=== PATIENT | female | born 1980 | race Caucasian/White ===

== ENCOUNTER 2016-04-01 11:31 | Emergency (ER) | payer BC ==
[2016-04-01 12:41] VITALS: BP 131/73
--- NOTE | 2016-04-01 12:58 | UC ---
UC General HPI - HPI Summary HPI Summary: sinus pressure and congestion for about 10 days. this all started with uri. she is not improving. she has tried pseudaphed. no fevers. - History of Current Complaint Chief Complaint: UCGeneralIllness Stated Complaint: SINUS COMPLAINT,SORE THROAT Time Seen by Provider: 04/01/16 12:44 Hx Obtained From: Patient Onset/Duration: Gradual Onset, Lasting Weeks Timing: Constant Onset Severity: Moderate Current Severity: Moderate - Allergy/Home Medications Allergies/Adverse Reactions: Allergies Allergy/AdvReac Type Severity Reaction Status Date / Time No Known Allergies Allergy Verified 04/01/16 12:41 Home Medications: Home Medications Ibuprofen TAB* [Advil TAB*] 800 mg PO Q6H PRN 04/01/16 [History Confirmed ] PMH/Surg Hx/FS Hx/Imm Hx Endocrine History Of: Denies: Diabetes, Thyroid Disease, Hyperthyroidism, Hypothyroidism, Dyslipidemia Cardiovascular History Of: Denies: Cardiac Disorders, Hypertension, Pacemaker/ICD, Myocardial Infarction , Congestive Heart Failure, Atrial Fibrillation, Deep Vein Thrombosis, Bleeding Disorders Respiratory History Of: Denies: COPD, Asthma, Bronchitis, Pneumonia, Pulmonary Embolism GI/ History Of: Reports: Kidney Stones - Hx x 5 Denies: Gastroesophageal Reflux, Ulcer, Gastrointestinal Bleed, Gall Bladder Disease, Diverticulitis, Renal Disease, Urosepsis Neurological History Of: Denies: TIA, CVA, Dementia, Seizures, Migraine Psychological History Of: Denies: Anxiety, Depression, Bipolar Disorder, Schizophrenia, Post Traumatic Stress Disorder Cancer History Of: Denies: Lung Cancer, Colorectal Cancer, Breast Cancer, Prostate Cancer, Cervical Cancer Other History Of: Negative For: HIV, Hepatitis B, Hepatitis C, Anticoagulant Therapy - Surgical History Surgical History: Yes Surgery Procedure, Year, and Place: 2004, 2007, 2009 C SECTIONS [place]. 2009 TUBAL LIGATION [place]. 2010 & 2011 L[facility]RIPSY [facility]. 02/2013 D&C [place] - Family History Known Family History: Positive: Diabetes Negative: Cardiac Disease, Hypertension - Social History Alcohol Use: Occasionally Substance Use Type: None Smoking Status (MU): Never Smoked Tobacco Review of Systems Constitutional: Negative All Other Systems Reviewed And Are Negative: Yes Physical Exam Triage Information Reviewed: Yes Appearance: Well-Appearing, No Pain Distress, Well-Nourished, Ill-Appearing Vital Signs: Initial Vital Signs Temp 98.5 F 04/01/16 12:36 Pulse 73 04/01/16 12:36 Resp 16 04/01/16 12:36 BP 131/73 04/01/16 12:36 Pulse Ox 100 04/01/16 12:36 Vital Signs Reviewed: Yes Eyes: Positive: Conjunctiva Clear, Conjunctiva Inflamed ENT Exam: Other - sinus pressure and sinus tenderness. ENT: Positive: Hearing grossly normal, Nasal congestion. Negative: Pharynx normal, Pharyngeal erythema, Nasal drainage, TMs normal, TM bulging, TM dull, TM red, Tonsillar swelling, Tonsillar exudate, Trismus, Muffled/hoarse voice Neck exam: Normal Neck: Positive: Supple, Nontender, No Lymphadenopathy Respiratory Exam: Normal Cardiovascular Exam: Normal Cardiovascular: Positive: RRR. Negative: Tachycardia, Bradycardia Abdominal Exam: Normal Abdomen Description: Positive: Nontender, No Organomegaly Bowel Sounds: Positive: Present Musculoskeletal Exam: Normal Musculoskeletal: Positive: Strength Intact Neurological Exam: Normal Neurological: Positive: Alert, Muscle Tone Normal Psychological Exam: Normal Psychological: Positive: Normal Response To Family Skin Exam: Normal Course/Dx - Course Course Of Treatment: URI with sinus pressure and signs of sinusitis especially as this is 10 days into the symptoms. we discussed netti pots, decongestents and augmentin. - Differential Dx - Multi-Symptom Provider Diagnoses: sinusitis. URI and congestion. Discharge - Discharge Plan Condition: Stable Disposition: HOME Prescriptions: Amoxicillin/Clavulanate TAB* [Augmentin TAB 875*] 875 mg PO BID #20 tab Referrals: Ashwin Quintero MD [Primary Care Provider] - If Needed
== END 2016-04-01 13:10 | disposition home or self-care (01) ==
LOC: UCCORT 11:31
DX: J32.9 Chronic sinusitis, unspecified (principal); J06.9 Acute upper respiratory infection, unspecified
CPT/HCPCS: 99212; G0463

== ENCOUNTER 2016-04-25 19:44 | Emergency (ER) | payer BC ==
[2016-04-25] MEDS ORDERED: Ondansetron INJ* 2 MG/ML VIAL IV ONE (21:30)
[2016-04-25] MEDS ORDERED: NS 0.9% 1000 ML* 2,000 ML IV ONE (21:30)
[2016-04-25 22:26] LABS: Urine Bilirubin Negative (Negative); Urine Glucose Negative (Negative); Urine Nitrite Negative (Negative)
[2016-04-25 22:28] LABS: Hematocrit 39 % (35-47); Hemoglobin 12.9 g/dl (12.0-16.0); Mean Corpuscular HGB Conc 33 g/dl (31-36); Mean Corpuscular Hemoglobin 27 pg (27-31); Mean Corpuscular Volume 81 fL (80-97); Mean Platelet Volume 10 um3 (7.4-10.4); Red Blood Count 4.76 10^6/ul (4.0-5.4); Red Cell Distribution Width 13 % (10.5-15); White Blood Count 12.1 10^3/ul (3.5-10.8)
[2016-04-25 22:39] LABS: ALT 192 U/L (7-52); AST 185 U/L (13-39); Alkaline Phosphatase 63 U/L (34-104); Anion Gap 7 mmol/L (2-11); BUN/Creatinine Ratio 12.5 (8-20); Blood Urea Nitrogen 10 mg/dL (6-24); C Reactive Protein 137.13 mg/L (< 5.00); CO2 Carbon Dioxide 24 mmol/L (22-32); Calcium 9.1 mg/dL (8.6-10.3); Chloride 104 mmol/L (101-111); EGFR African American 104.4 (>60); EGFR Non-African American 81.2 (>60); Globulin 3.1 g/dL (2-4); Glucose 92 mg/dL (70-100); Lipase < 10 U/L (11.0-82.0); Potassium 3.7 mmol/L (3.5-5.0); Sodium 135 mmol/L (133-145); Total Protein 7.1 g/dL (6.4-8.9)
--- NOTE | 2016-04-25 22:39 | RAD ---
INDICATION: Left-sided flank abdominal pain, history of kidney stones. COMPARISON: Comparison is made with a prior KUB series from April 24, 2013. TECHNIQUE: A CT scan of the abdomen and pelvis was performed without intravenous or oral contrast. Contiguous axial sections were obtained from the lung bases through the symphysis pubis. Images were reconstructed in the coronal and sagittal planes. FINDINGS: The lung bases are clear. No pleural effusion is present. The liver is moderately enlarged and decreased in attenuation consistent with fatty infiltration. The spleen is mildly enlarged. No significant focal abnormalities are seen on this noncontrast study. No calcified gallstones are present. The pancreas is within normal limits in size. The adrenal glands and kidneys are normal in size. No renal calculi or hydronephrosis is seen. No ureteral or bladder calculi are seen. The aorta is normal in caliber without significant calcific plaque. No significant enlarged retroperitoneal lymph nodes are seen. The stomach, small and large bowel appear nondistended. The appendix is within normal limits. There is no evidence for diverticulitis or colitis. The uterus is anteverted and mildly enlarged. The ovaries appear slightly high in position. There are bilateral ovarian cysts measuring 3.3 x 3.0 cm in the right ovary and 3.7 x 2.4 cm in the left ovary. No significant focal osseous abnormality is seen. IMPRESSION: 1. NO EVIDENCE FOR RENAL, URETERAL CALCULI OR HYDRONEPHROSIS. 2. HEPATOSPLENOMEGALY AND HEPATIC STEATOSIS. 3. BILATERAL OVARIAN CYSTS.
--- NOTE | 2016-04-25 23:02 | ED ---
Jean Claude Martini Rebecca, scribed for Mariano West MD on 04/25/16 at 2137 . Abdominal Pain/Female - HPI Summary HPI Summary: Pt is a 36 y/o F who presents to ED c/o L flank pain. Pain began suddenly today at 1600 and has been constant since onset. Pain is characterized as sharp, currently ranked 8/10 and discrete to the L flank without radiation. Sx aggravated and alleviated by nothing. Additionally c/o nausea and fever. Fever was 102.1 at its highest, [employer]. Has not taken anything to treat. Pt was evaluated by Dr. Sheldon earlier today where a UA and US were performed, both of which were negative. Pt reports that she was advised to come to ED if her fever elevated beyond [address] to check for a kidney stone. PMHx kidney stones. - History of Current Complaint Chief Complaint: EDFlankPain Stated Complaint: POSSIBLE KIDNEY STONE Time Seen by Provider: 04/25/16 21:34 Hx Obtained From: Patient Hx Last Menstrual Period: 03/13/16 Onset/Duration: Sudden Onset, Lasting Hours - 6 hours, Still Present Timing: Constant Severity Initially: Moderate Severity Currently: Severe Pain Intensity: 8 Pain Scale Used: 0-10 Numeric Location: Flank - Left Radiates: No Character: Sharp Aggravating Factor(s): Nothing Alleviating Factor(s): Nothing Associated Signs and Symptoms: Positive: Fever, Nausea Allergies/Adverse Reactions: Allergies Allergy/AdvReac Type Severity Reaction Status Date / Time No Known Allergies Allergy Verified 04/01/16 12:41 PMH/Surg Hx/FS Hx/Imm Hx Endocrine/Hematology History: Denies: Hx Anticoagulant Therapy, Hx Diabetes, Hx Thyroid Disease Cardiovascular History: Denies: Hx Congestive Heart Failure, Hx Deep Vein Thrombosis, Hx Hypertension , Hx Myocardial Infarction, Hx Pacemaker/ICD Respiratory History: Denies: Hx Asthma, Hx Chronic Obstructive Pulmonary Disease (COPD), Hx Lung Cancer, Hx Pneumonia, Hx Pulmonary Embolism GI History: Denies: Hx Gall Bladder Disease, Hx Gastrointestinal Bleed, Hx Ulcer, Hx Urosepsis History: Reports: Hx Kidney Stones - Hx x 5 Denies: Hx Renal Disease Sensory History: Denies: Hx Hearing Aid Neurological History: Denies: Hx Dementia, Hx Migraine, Hx Seizures, Hx Transient Ischemic Attacks (TIA) Psychiatric History: Denies: Hx Anxiety, Hx Depression, Hx Panic Disorder, Hx Schizophrenia, Hx Bipolar Disorder - Surgical History Surgery Procedure, Year, and Place: 2004, 2007, 2009 C [place]CTIONS [place]. 2009 TUBAL LIGATION [place]. 2010 & 2011 L[facility]OTRIPSY [facility] [place]. 02/2013 [facility] [place] Hx Anesthesia Reactions: No Infectious Disease History: No Infectious Disease History: Denies: Hx Hepatitis, Hx Human Immunodeficiency Virus (HIV), Traveled Outside the [place] in Last 30 Days - Family History Known Family History: Positive: Diabetes Negative: Cardiac Disease, Hypertension - Social History Alcohol Use: Occasionally Substance Use Type: Reports: None Smoking Status (MU): Never Smoked Tobacco Review of Systems Positive: Fever - 102.1 Positive: Abdominal Pain - L flank pain, Nausea All Other Systems Reviewed And Are Negative: Yes Physical Exam Triage Information Reviewed: Yes Vital Signs On Initial Exam: Initial Vitals Temp Pulse Resp BP Pulse Ox 101 F 89 20 151/80 97 04/25/16 19:48 04/25/16 19:48 04/25/16 19:48 04/25/16 19:48 04/25/16 19:48 Vital Signs Reviewed: Yes Appearance: Positive: Pain Distress - mild discomfort, Obese Skin: Positive: Warm Eyes: Positive: GURU ENT: Positive: Hearing grossly normal Neck: Positive: Supple Respiratory/Lung Sounds: Positive: Breath Sounds Present Cardiovascular: Positive: RRR Abdomen Description: Positive: Nontender, Soft. Negative: CVA Tenderness (R), CVA Tenderness (L) Bowel Sounds: Positive: Present Musculoskeletal: Positive: Strength/ROM Intact Neurological: Positive: Alert, Oriented to Person Place, Time, Normal Gait Psychiatric: Positive: Affect/Mood Appropriate Diagnostics - Vital Signs Vital Signs Temp Pulse Resp BP Pulse Ox 04/25/16 21:29 101.1 F 81 20 119/68 100 04/25/16 20:45 100.8 F 88 20 118/76 100 04/25/16 19:48 101 F 89 20 151/80 97 - Laboratory Lab Results: Lab Results 04/25/16 04/25/16 04/25/16 Range/Units 22:02 22:02 22:02 WBC 12.1 H (3.5-10.8) 10^3/ul RBC 4.76 (4.0-5.4) 10^6/ul Hgb 12.9 (12.0-16.0) g/dl Hct 39 (35-47) % MCV 81 (80-97) fL MCH 27 (27-31) pg MCHC 33 (31-36) g/dl RDW 13 (10.5-15) % Plt Count 168 (150-450) 10^3/ul MPV 10 (7.4-10.4) um3 Neut % (Auto) 82.0 (38-83) % Lymph % (Auto) 11.0 L (25-47) % Robeson % (Auto) 4.1 (1-9) % Eos % (Auto) 2.7 (0-6) % Baso % (Auto) 0.2 (0-2) % Absolute Neuts (auto) 9.9 H (1.5-7.7) 10^3/ul Absolute Lymphs (auto) 1.3 (1.0-4.8) 10^3/ul Absolute Monos (auto) 0.5 (0-0.8) 10^3/ul Absolute Eos (auto) 0.3 (0-0.6) 10^3/ul Absolute Basos (auto) 0 (0-0.2) 10^3/ul Absolute Nucleated RBC 0 10^3/ul Nucleated RBC % 0 INR (Anticoag Therapy) 1.10 (0.89-1.11) APTT 27.9 (26.0-36.3) seconds Sodium 135 (133-145) mmol/L Potassium 3.7 (3.5-5.0) mmol/L Chloride 104 (101-111) mmol/L Carbon Dioxide 24 (22-32) mmol/L Anion Gap 7 (2-11) mmol/L BUN 10 (6-24) mg/dL Creatinine 0.80 (0.51-0.95) mg/dL Est GFR ( Amer) 104.4 (>60) Est GFR (Non-Af Amer) 81.2 (>60) BUN/Creatinine Ratio 12.5 (8-20) Glucose 92 (70-100) mg/dL Lactic Acid (0.5-2.0) mmol/L Calcium 9.1 (8.6-10.3) mg/dL Total Bilirubin 1.70 H (0.2-1.0) mg/dL AST 185 H (13-39) U/L ALT 192 H (7-52) U/L Alkaline Phosphatase 63 (34-104) U/L C-Reactive Protein 137.13 H (< 5.00) mg/L Total Protein 7.1 (6.4-8.9) g/dL Albumin 4.0 (3.2-5.2) g/dL Globulin 3.1 (2-4) g/dL Albumin/Globulin Ratio 1.3 (1-3) Lipase < 10 L (11.0-82.0) U/L Beta HCG, Quant < 0.60 mIU/mL Urine Color Urine Appearance Urine pH (5-9) Ur Specific [place] (1.010-1.030) Urine Protein (Negative) Urine Ketones (Negative) Urine Blood (Negative) Urine Nitrate (Negative) Urine Bilirubin (Negative) Urine Urobilinogen (Negative) Ur Leukocyte Esterase (Negative) Urine Glucose (Negative) 04/25/16 04/25/16 Range/Units 22:02 22:02 WBC (3.5-10.8) 10^3/ul RBC (4.0-5.4) 10^6/ul Hgb (12.0-16.0) g/dl Hct (35-47) % MCV (80-97) fL MCH (27-31) pg MCHC (31-36) g/dl RDW (10.5-15) % Plt Count (150-450) 10^3/ul MPV (7.4-10.4) um3 Neut % (Auto) (38-83) % Lymph % (Auto) (25-47) % Robeson % (Auto) (1-9) % Eos % (Auto) (0-6) % Baso % (Auto) (0-2) % Absolute Neuts (auto) (1.5-7.7) 10^3/ul Absolute Lymphs (auto) (1.0-4.8) 10^3/ul Absolute Monos (auto) (0-0.8) 10^3/ul Absolute Eos (auto) (0-0.6) 10^3/ul Absolute Basos (auto) (0-0.2) 10^3/ul Absolute Nucleated RBC 10^3/ul Nucleated RBC % INR (Anticoag Therapy) (0.89-1.11) APTT (26.0-36.3) seconds Sodium (133-145) mmol/L Potassium (3.5-5.0) mmol/L Chloride (101-111) mmol/L Carbon Dioxide (22-32) mmol/L Anion Gap (2-11) mmol/L BUN (6-24) mg/dL Creatinine (0.51-0.95) mg/dL Est GFR ( Amer) (>60) Est GFR (Non-Af Amer) (>60) BUN/Creatinine Ratio (8-20) Glucose (70-100) mg/dL Lactic Acid 0.8 (0.5-2.0) mmol/L Calcium (8.6-10.3) mg/dL Total Bilirubin (0.2-1.0) mg/dL AST (13-39) U/L ALT (7-52) U/L Alkaline Phosphatase (34-104) U/L C-Reactive Protein (< 5.00) mg/L Total Protein (6.4-8.9) g/dL Albumin (3.2-5.2) g/dL Globulin (2-4) g/dL Albumin/Globulin Ratio (1-3) Lipase (11.0-82.0) U/L Beta HCG, Quant mIU/mL Urine Color Yellow Urine Appearance Cloudy Urine pH 8.0 (5-9) Ur Specific [place] 1.018 (1.010-1.030) Urine Protein Negative (Negative) Urine Ketones 1+ H (Negative) Urine Blood Negative (Negative) Urine Nitrate Negative (Negative) Urine Bilirubin Negative (Negative) Urine Urobilinogen Negative (Negative) Ur Leukocyte Esterase Negative (Negative) Urine Glucose Negative (Negative) Result Diagrams: 04/25/16 22:02 04/25/16 22:02 Lab Statement: Any lab studies that have been ordered have been reviewed, and results considered in the medical decision making process. - CT Abd/Pel CT CT Interpretation Completed By: Radiologist - 1. NO EVIDENCE FOR RENAL, URETERAL CALCULI OR HYDRONEPHROSIS. 2. HEPATOSPLENOMEGALY AND HEPATIC STEATOSIS. 3. BILATERAL OVARIAN CYSTS. - Ultrasound No standard instances Ultrasound Interpretation Completed By: Radiologist - US Abd: Enlarged fatty liver. Gallstone without secondary findings for cholecystitis. Re-Evaluation - Re-Evaluation First Eval Change: Improved Abdominal Pain Fem Course/Dx - Course Course Of Treatment: Pt is a 36 y/o F who presents to ED c/o L flank pain, nausea and fever since [address] Abd/Pel reveals bilateral ovarian cysts and no kidney stones. US Abd reveals no acute findings. Pt will be d/c to home with a followup with her PCP. - Diagnoses Provider Diagnoses: Abdominal pain Discharge - Discharge Plan Condition: Stable Disposition: HOME Prescriptions: Ondansetron ODT TAB* [Zofran Odt TAB*] 4 mg PO Q6H #10 tab.odt Patient Education Materials: Abdominal Pain (ED) Referrals: Ashwin Quintero MD [Primary Care Provider] - 3 Days (Follow up with your primary care physician within the next 3 days. ) The documentation as recorded by the Jean Claude rubin Rebecca accurately reflects the service I personally performed and the decisions made by me, Mariano West MD.
[2016-04-26 00:38] VITALS: BP 155/62
--- NOTE | 2016-04-26 07:36 | RAD ---
HISTORY: Elevated LFTs, abdominal pain COMPARISONS: CT dated April 25, 2016 TECHNIQUE: Multiple transverse and longitudinal ultrasound images were obtained of the right upper quadrant of the abdomen using grayscale and color Doppler imaging. FINDINGS: LIVER: The liver is diffusely echogenic and coarse in echotexture, with decreased acoustic transmission. The liver is enlarged measuring 19.9 cm in long axis.. There is normal hepatopedal flow of the portal vein on Doppler imaging. BILIARY TREE: There is no intrahepatic or extrahepatic biliary dilatation. The common duct measures 0.4 cm. GALLBLADDER: The gallbladder is distended. There is an echogenic shadowing focus consistent with a gallstone. There is no gallbladder wall thickening, pericholecystic fluid, or sonographic Guajardo sign. PANCREAS: The head of the pancreas is unremarkable. The tail of the pancreas is not well visualized secondary to overlying bowel gas. RIGHT KIDNEY: The right kidney is normal in shape, size, contour, and echogenicity. There is no hydronephrosis or nephrolithiasis. The right kidney measures 13.3 x 5.1 x 6.1 cm. AORTA AND IVC: The aorta and IVC are unremarkable. FLUID: There are no pleural effusions. There is no free fluid within the hepatorenal recess. OTHER FINDINGS: None. IMPRESSION: 1. HEPATOMEGALY WITH FATTY INFILTRATION OF THE LIVER. 2. CHOLELITHIASIS WITHOUT SONOGRAPHIC FEATURES OF ACUTE CHOLECYSTITIS.
== END 2016-04-26 00:40 | disposition home or self-care (01) ==
LOC: ED 19:44
DX: R10.84 Generalized abdominal pain (principal); R11.2 Nausea with vomiting, unspecified; R50.9 Fever, unspecified
CPT/HCPCS: 36415; 74176; 76705; 80053; 81003; 83605; 83690; 84702; 85025; 85610; 85730; 86140; 87040; 96374; 99283; J2405

== ENCOUNTER 2016-10-23 15:42 | Emergency (ER) | payer BC ==
[2016-10-23 16:49] VITALS: BP 135/72
--- NOTE | 2016-10-23 17:20 | UC ---
Ear Complaint HPI - HPI Summary HPI Summary: Pt presents with c/o bilateral ear pain and discomfort X 3-4 days. pt pt reports that her "ears feel full, itchy, and ache". She recently traveled to beach vacation and was swimming on a daily basis. Pt has history of seasonal allergies and stgaed she has had some nasal congestion and "sinus fullness" X 4- 5 days. - History of Current Complaint Chief Complaint: UCEar Stated Complaint: EAR ACHE Time Seen by Provider: 10/23/16 17:13 Hx Obtained From: Patient Hx Last Menstrual Period: 09/20/16 - has PCOS ?: No Onset/Duration: Gradual Onset, Lasting Days, Still Present, Worse Since - moderate Severity Initially: Mild Severity Currently: Mild Associated Signs/Symptoms: Positive: Hearing Loss Related History: Seasonal Allergies - Allergies/Home Medications Allergies/Adverse Reactions: Allergies Allergy/AdvReac Type Severity Reaction Status Date / Time No Known Allergies Allergy Verified 10/23/16 16:41 PMH/Surg Hx/FS Hx/Imm Hx Previously Healthy: Yes Other History Of: Negative For: HIV, Hepatitis B, Hepatitis C, Anticoagulant Therapy - Surgical History Surgical History: Yes Surgery Procedure, Year, and Place: 2004, 2007, 2009 C SECTIONS [place]. 2009 TUBAL LIGATION [place]. 2010 & 2011 L[facility]RIPSY [facility] [place]. 02/2013 [facility]C [place] - Family History Known Family History: Positive: Diabetes Negative: Cardiac Disease, Hypertension - Social History Occupation: Employed Full-time Lives: With Family Alcohol Use: Occasionally Substance Use Type: None Smoking Status (MU): Never Smoked Tobacco Have You Smoked in the Last Year: No Review of Systems Constitutional: Negative Skin: Negative Eyes: Negative ENT: Ear Ache - bilateral, Sinus Congestion, Other - nasal congestion Respiratory: Negative Cardiovascular: Negative Gastrointestinal: Negative Genitourinary: Negative Motor: Negative Neurovascular: Negative Musculoskeletal: Negative Neurological: Negative Psychological: Negative All Other Systems Reviewed And Are Negative: Yes Physical Exam Triage Information Reviewed: Yes Appearance: Well-Appearing Vital Signs: Initial Vital Signs Temp 99.2 F 10/23/16 16:42 Pulse 81 10/23/16 16:42 Resp 16 10/23/16 16:42 BP 135/72 10/23/16 16:42 Pulse Ox 97 10/23/16 16:42 Vital Signs Reviewed: Yes Eye Exam: Normal ENT Exam: Other ENT: Positive: Nasal congestion, TMs normal, Other: - right ear canal small amount cerumen, Dental Exam: Normal Neck exam: Normal Respiratory Exam: Normal Cardiovascular Exam: Normal Musculoskeletal Exam: Normal Neurological Exam: Normal Psychological Exam: Normal Skin Exam: Normal Ear Complaint Course/Dx - Differential Dx/Diagnosis Differential Diagnosis/HQI/PQRI: URI Provider Diagnoses: ear ache. serous otitis media Discharge - Discharge Plan Condition: Stable Disposition: HOME Prescriptions: Tobramycin/Dexameth OPTH.SUSP* [Tobradex 0.3-0.1%*] 2 drop BOTH EARS Q8H #1 btl Patient Education Materials: Earache (ED) Referrals: Ashwin Quintero MD [Primary Care Provider] - If Needed Additional Instructions: It is recommend that you continue taking and over the counter antihistamine and decongestant. If your symptoms worsen please return to clinic or follow up with your PCP.
== END 2016-10-23 17:30 | disposition home or self-care (01) ==
LOC: UCCORT 15:42
DX: H65.93 Unspecified nonsuppurative otitis media, bilateral (principal); H92.03 Otalgia, bilateral; H61.21 Impacted cerumen, right ear
CPT/HCPCS: 99212; G0463

== ENCOUNTER 2017-05-20 07:01 | Emergency (ER) | payer BC ==
--- NOTE | 2017-05-20 07:16 | UC ---
Complaint Female HPI - HPI Summary HPI Summary: 37 yo female c/o frequ / urg / dysuria prog worse x 4 days. Thinks started with vag yeast infection, was taking cephalexin d/t post surg wound, completed on . + whte vag discharge. + mild mid low back pain. No f /c. No rash. No GI upset. No c/o sob / cp. - History Of Current Complaint Stated Complaint: URINARY Time Seen by Provider: 05/20/17 07:08 Hx Obtained From: Patient Hx Last Menstrual Period: 09/20/16 - has PCOS - Allergies/Home Medications Allergies/Adverse Reactions: Allergies Allergy/AdvReac Type Severity Reaction Status Date / Time No Known Allergies Allergy Verified 05/20/17 07:24 Home Medications: Home Medications Cephalexin CAP* [Keflex CAP*] 500 mg PO QID 05/20/17 [History Confirmed 05/20/17 ] Miconazole TOPICAL CREAM 2%* [Monistat 2%*] 1 applic TOPICAL DAILY 05/20/17 [ History Confirmed 05/20/17] PMH/Surg Hx/FS Hx/Imm Hx Previously Healthy: Yes - recent GBS Other History Of: Negative For: HIV, Hepatitis B, Hepatitis C, Anticoagulant Therapy - Surgical History Surgical History: Yes Surgery Procedure, Year, and Place: 2004, 2007, 2009 [place]. 2009 [place]. 2010 & 2011 [place] [facility] [place] [facility] [place] 02/2013 [place] - Family History Known Family History: Positive: Diabetes Negative: Cardiac Disease, Hypertension - Social History Alcohol Use: Occasionally Substance Use Type: None Smoking Status (MU): Never Smoked Tobacco Have You Smoked in the Last Year: No Review of Systems Constitutional: Negative Skin: Negative Eyes: Negative ENT: Negative Respiratory: Negative Cardiovascular: Negative Gastrointestinal: Negative - recent gbs surg Genitourinary: Dysuria, Frequency, Urgency Motor: Negative Neurovascular: Negative Musculoskeletal: Negative Neurological: Negative Psychological: Negative Is Patient Immunocompromised?: No All Other Systems Reviewed And Are Negative: Yes Physical Exam Triage Information Reviewed: Yes Appearance: Well-Appearing, Well-Nourished Vital Signs Reviewed: Yes Eye Exam: Normal ENT Exam: Normal Neck exam: Normal Respiratory Exam: Normal Respiratory: Positive: Chest non-tender, Lungs clear, Normal breath sounds, No respiratory distress Cardiovascular Exam: Normal Cardiovascular: Positive: RRR, No Murmur Abdominal Exam: Normal Abdomen Description: Positive: Nontender Musculoskeletal Exam: Normal Neurological Exam: Normal Psychological Exam: Normal Skin Exam: Normal Complaint Female Dx - Course Course Of Treatment: Declined pelvic exam. Reviewed coa / tx plan. Questions as posed answered to the best of my ability. F/U pcp encouraged - Differential Dx/Diagnosis Provider Diagnoses: UTI. yeast vaginitis (by clinical descp, declined exam) Discharge - Discharge Plan Condition: Stable Disposition: HOME Prescriptions: Fluconazole [Diflucan 150 MG (NF)] 150 mg PO DAILY #2 tab Sulfamethox/Trimethoprim DS* [Bactrim DS 800/160 TAB*] 1 tab PO BID #14 tab Patient Education Materials: Urinary Tract Infection in Women (DC), Yeast Infection (ED), Hematuria (ED) Referrals: Ashwin Quintero MD [Primary Care Provider] - Additional Instructions: Follow up with your primary care physician after antibiotics complete, to ensure blood in urine is clear. Seek medical attention for worse or new problems in the meantime.
[2017-05-20 07:24] VITALS: BP 144/65
== END 2017-05-20 07:50 | disposition home or self-care (01) ==
LOC: UCCORT 07:01
DX: N39.0 Urinary tract infection, site not specified (principal); B37.3 Candidiasis of vulva and vagina; B95.2 Enterococcus as the cause of diseases classified elsewhere
CPT/HCPCS: 81003; 87077; 87086; 87186; 99212; G0463

== ENCOUNTER 2017-06-16 15:06 | Emergency (ER) | payer BC ==
[2017-06-16 15:55] VITALS: BP 142/79
--- NOTE | 2017-06-16 16:19 | UC ---
Throat Pain/Nasal [place] HPI - HPI Summary HPI Summary: 37 yo female with sore throat and facial pressure x 4-5 days no f/c low energy - History of Current Complaint Chief Complaint: UCGeneralIllness Stated Complaint: SORE THROAT Time Seen by Provider: 06/16/17 16:04 Hx Obtained From: Patient Hx Last Menstrual Period: 06/09/17 Onset/Duration: Gradual Onset, Lasting Days Severity: Moderate Pain Intensity: 6 Pain Scale Used: 0-10 Numeric Cough: None Associated Signs & Symptoms: Positive: Sinus Discomfort - Epiglottits Risk Factors Epiglottis Risk Factors: Negative - Allergies/Home Medications Allergies/Adverse Reactions: Allergies Allergy/AdvReac Type Severity Reaction Status Date / Time amoxicillin [From Augmentin] AdvReac yeast Verified 06/16/17 15:55 infection clavulanic acid AdvReac yeast Verified 06/16/17 15:55 [From Augmentin] infection sulfamethoxazole AdvReac GI cramps Verified 06/16/17 15:55 [From Bactrim] trimethoprim [From Bactrim] AdvReac GI cramps Verified 06/16/17 15:55 PMH/Surg Hx/FS Hx/Imm Hx Previously Healthy: Yes Other History Of: Negative For: HIV, Hepatitis B, Hepatitis C, Anticoagulant Therapy - Surgical History Surgical History: Yes Surgery Procedure, Year, and Place: 2004, 2007, 2009 C [place]CTIONS [place]. 2009 TUBAL LIGATION [place]. 2010 & 2011 L[place] [facility] [place] 02/2013 [facility] [place]. gallbladder 03/28/17 - Family History Known Family History: Positive: Diabetes Negative: Cardiac Disease, Hypertension - Social History Alcohol Use: Occasionally Substance Use Type: None Smoking Status (MU): Never Smoked Tobacco Have You Smoked in the Last Year: No Review of Systems Constitutional: Fatigue Skin: Negative Eyes: Negative ENT: Sore Throat, Nasal Discharge, Sinus Congestion Respiratory: Negative Cardiovascular: Negative Gastrointestinal: Negative Genitourinary: Negative Motor: Negative Neurovascular: Negative Musculoskeletal: Negative Neurological: Negative Psychological: Negative Is Patient Immunocompromised?: No All Other Systems Reviewed And Are Negative: Yes Physical Exam Triage Information Reviewed: Yes Appearance: Well-Appearing, No Pain Distress, Well-Nourished Vital Signs: Initial Vital Signs Temp 98.7 F 06/16/17 15:48 Pulse 75 06/16/17 15:48 Resp 18 06/16/17 15:48 BP 142/79 06/16/17 15:48 Pulse Ox 100 06/16/17 15:48 Vital Signs Reviewed: Yes Eyes: Positive: Conjunctiva Clear ENT: Positive: Pharyngeal erythema, Uvula midline. Negative: Nasal congestion, Nasal drainage, TM red, Tonsillar swelling, Tonsillar exudate, Trismus Neck: Positive: Supple, Nontender, No Lymphadenopathy Respiratory: Positive: Lungs clear, Normal breath sounds, No respiratory distress, No accessory muscle use Cardiovascular: Positive: RRR, No Murmur Musculoskeletal: Positive: ROM Intact, No Edema Neurological: Positive: Alert Psychological Exam: Normal Skin Exam: Normal Diagnostics - Laboratory Diagnostic Studies Completed/Ordered: strep (-) Throat Pain/Nasal Course/Dx - Differential Dx/Diagnosis Provider Diagnoses: acute sinusitis Discharge - Sign-Out/Discharge Documenting (check all that apply): Discharge - Discharge Plan Condition: Stable Disposition: HOME Prescriptions: Azithromycin TAB* [Zithromax TAB*] 250 mg PO DAILY #6 tab Fluconazole 150 MG (NF) [Diflucan 150 mg (NF)] 150 mg PO ONCE #1 tab Patient Education Materials: Sinusitis (ED) Referrals: No Primary Care Phys,NOPCP [Primary Care Provider] - Additional Instructions: strep test (-) saline nasal spray twice daily - Billing Disposition and Condition Condition: STABLE Disposition: HOME
== END 2017-06-16 16:25 | disposition home or self-care (01) ==
LOC: UCCORT 15:06
DX: J01.90 Acute sinusitis, unspecified (principal); Z88.1 Allergy status to other antibiotic agents; Z88.0 Allergy status to penicillin; Z88.8 Allergy status to other drugs, medicaments and biological substances
CPT/HCPCS: 87651; 99212; G0463

== ENCOUNTER 2017-10-02 21:28 | Emergency (ER) | payer BC ==
[2017-10-02 21:47] VITALS: BP 129/71
[2017-10-02] MEDS ORDERED: Clarithromycin TAB* 500 MG PO ONE (21:55)
--- NOTE | 2017-10-02 21:59 | ED ---
Throat Pain/Nasal Congestion - HPI Summary HPI Summary: 37 yr old female with the complaint of bilateral ear pain, right greater then left, and sinus pressure post nasal drip and sore throat on the right side. No fever, chills. No SOB. No coughing. She has a history of sinusitis. No other complaints. pain is moderate. - History of Current Complaint Chief Complaint: UCEar Time Seen by Provider: 10/02/17 21:35 - Allergies/Home Medications Allergies/Adverse Reactions: Allergies Allergy/AdvReac Type Severity Reaction Status Date / Time amoxicillin [From Augmentin] AdvReac yeast Verified 10/02/17 21:48 infection clavulanic acid AdvReac yeast Verified 10/02/17 21:48 [From Augmentin] infection sulfamethoxazole AdvReac GI cramps Verified 10/02/17 21:48 [From Bactrim] trimethoprim [From Bactrim] AdvReac GI cramps Verified 10/02/17 21:48 Home Medications: Home Medications Ibuprofen TAB* [Motrin TAB* 800 MG] 800 mg PO ONCE 10/02/17 [History Confirmed 10/02/17] PMH/Surg Hx/FS Hx/Imm Hx Endocrine/Hematology History: Denies: Hx Anticoagulant Therapy, Hx Diabetes, Hx Thyroid Disease Cardiovascular History: Denies: Hx Congestive Heart Failure, Hx Deep Vein Thrombosis, Hx Hypertension , Hx Myocardial Infarction, Hx Pacemaker/ICD Respiratory History: Denies: Hx Asthma, Hx Chronic Obstructive Pulmonary Disease (COPD), Hx Lung Cancer, Hx Pneumonia, Hx Pulmonary Embolism GI History: Denies: Hx Gall Bladder Disease, Hx Gastrointestinal Bleed, Hx Ulcer, Hx Urosepsis History: Reports: Hx Kidney Stones - Hx x 5 Denies: Hx Renal Disease Sensory History: Denies: Hx Hearing Aid Neurological History: Denies: Hx Dementia, Hx Migraine, Hx Seizures, Hx Transient Ischemic Attacks (TIA) Psychiatric History: Denies: Hx Anxiety, Hx Depression, Hx Panic Disorder, Hx Schizophrenia, Hx Bipolar Disorder - Surgical History Surgery Procedure, Year, and Place: 2004, 2007, 2009 [facility] [place] [place]. 2009 [place]AL L[place]ATION [place]. 2010 & 2011 LITHOTRIPSY [facility]. 02/2013 [facility] [place]. gallbladder 03/28/17 Hx Anesthesia Reactions: No Infectious Disease History: No Infectious Disease History: Denies: Hx Hepatitis, Hx Human Immunodeficiency Virus (HIV), Traveled Outside the [place] in Last 30 Days - Family History Known Family History: Positive: Diabetes Negative: Cardiac Disease, Hypertension - Social History Occupation: Employed Full-time Alcohol Use: Occasionally Substance Use Type: Reports: None Smoking Status (MU): Never Smoked Tobacco Have You Smoked in the Last Year: No Review of Systems Constitutional: Negative Positive: Ear Ache, Nasal Discharge All Other Systems Reviewed And Are Negative: Yes Physical Exam Triage Information Reviewed: Yes Vital Signs On Initial Exam: Initial Vitals Temp Pulse Resp BP Pulse Ox 98.3 F 77 17 129/71 99 10/02/17 21:42 10/02/17 21:42 10/02/17 21:42 10/02/17 21:42 10/02/17 21:42 Vital Signs Reviewed: Yes Appearance: Positive: Well-Appearing, No Pain Distress Skin: Positive: Warm, Skin Color Reflects Adequate Perfusion Head/Face: Positive: Normal Head/Face Inspection Eyes: Positive: EOMI ENT: Positive: Nasal congestion, TM red - left, right with effusion. Neck: Positive: Nontender Respiratory/Lung Sounds: Positive: Clear to Auscultation, Breath Sounds Present Cardiovascular: Positive: RRR. Negative: Murmur Abdomen Description: Positive: Nontender Musculoskeletal: Positive: Strength/ROM Intact Neurological: Positive: Sensory/Motor Intact, Alert, Oriented to Person Place, Time, CN Intact II-III, Normal Gait Psychiatric: Positive: Normal - Marva Coma Scale Best Eye Response: 4 - Spontaneous Best Motor Response: 6 - Obeys Commands Best Verbal Response: 5 - Oriented Coma Scale Total: 15 Diagnostics - Vital Signs Vital Signs Temp Pulse Resp BP Pulse Ox 10/02/17 21:42 98.3 F 77 17 129/71 99 - Laboratory Lab Statement: Any lab studies that have been ordered have been reviewed, and results considered in the medical decision making process. EENT Course/Dx - Course Course Of Treatment: 37 yr old with sinusitis, and OM. Rx Biaxin. - Diagnoses Provider Diagnoses: Otitis media, Sinusitis Discharge - Sign-Out/Discharge Documenting (check all that apply): Discharge/Admit/Transfer - Discharge Plan Condition: Good Disposition: HOME Prescriptions: Clarithromycin TAB* [Biaxin 500 MG TAB*] 500 mg PO BID #20 tab Patient Education Materials: Sinusitis (ED), Ear Infection (ED) Referrals: [facility] [place] PHYSICIAN REFERRAL [Outside] No Primary Care Phys,NOPCP [Primary Care Provider] - - Billing Disposition and Condition Condition: GOOD Disposition: Home
== END 2017-10-02 22:06 | disposition home or self-care (01) ==
LOC: UCCORT 21:28
DX: H66.93 Otitis media, unspecified, bilateral (principal); J32.9 Chronic sinusitis, unspecified; Z88.0 Allergy status to penicillin; Z88.2 Allergy status to sulfonamides
CPT/HCPCS: 99212; A9270-GY; G0463

== ENCOUNTER 2018-01-07 16:40 | Emergency (ER) | payer BC ==
[2018-01-07] MEDS ORDERED: Azithromycin TAB* 250 MG PO ONE (17:56)
[2018-01-07] MEDS ORDERED: Albuterol HFA INHALER* 8 gm MDI INH ONE (17:56)
[2018-01-07] MEDS ORDERED: Benzonatate CAP* 100 MG PO ONE (17:57)
[2018-01-07 18:00] VITALS: BP 138/71
--- NOTE | 2018-01-07 18:01 | UC ---
Respiratory Complaint HPI - HPI Summary HPI Summary: 7 days of nasal and throat sx now has bronchial symptoms with cough burning and green sputum---feels fatigued and SOB - History of Current Complaint Chief Complaint: UCRespiratory Stated Complaint: COUGH Time Seen by Provider: 01/07/18 17:43 Hx Obtained From: Patient Hx Last Menstrual Period: "maybe dec 14-"; irregular menses ?: No Onset/Duration: Gradual Onset, Lasting Days - 7, Still Present, Worse Since - past 3 days Timing: Constant Severity Initially: Mild Severity Currently: Moderate Pain Intensity: 5 Pain Scale Used: 0-10 Numeric Character: Cough: Productive Aggravating Factors: Deep Breaths, Recumbent Position Alleviating Factors: Other - sudafed with Robitussin is providing some relief-- Associated Signs And Symptoms: Positive: Dyspnea, Chills, Pleuritic Chest Pain - Allergies/Home Medications Allergies/Adverse Reactions: Allergies Allergy/AdvReac Type Severity Reaction Status Date / Time amoxicillin [From Augmentin] AdvReac yeast Verified 01/07/18 17:55 infection clavulanic acid AdvReac yeast Verified 01/07/18 17:55 [From Augmentin] infection sulfamethoxazole AdvReac GI cramps Verified 01/07/18 17:55 [From Bactrim] trimethoprim [From Bactrim] AdvReac GI cramps Verified 01/07/18 17:55 PMH/Surg Hx/FS Hx/Imm Hx Previously Healthy: Yes Other History Of: Negative For: HIV, Hepatitis B, Hepatitis C, Anticoagulant Therapy - Surgical History Surgical History: Yes Surgery Procedure, Year, and Place: 2004, 2007, 2009 [place]. 2009 [place]AL L[place]. 2010 & 2011 LITH[facility]RIPSY [facility] [place]. 02/2013 [facility] [place]. gallbladder 03/28/17 - Family History Known Family History: Positive: Diabetes Negative: Cardiac Disease, Hypertension - Social History Occupation: Employed Full-time - teacher Lives: With Family Alcohol Use: None Substance Use Type: None Smoking Status (MU): Never Smoked Tobacco Have You Smoked in the Last Year: No Review of Systems Constitutional: Chills, Fatigue Skin: Negative Eyes: Negative ENT: Sore Throat, Nasal Discharge Respiratory: Shortness Of Breath, Cough Cardiovascular: Negative Gastrointestinal: Negative Genitourinary: Negative Motor: Negative Neurovascular: Negative Musculoskeletal: Negative Neurological: Negative Psychological: Negative Is Patient Immunocompromised?: No All Other Systems Reviewed And Are Negative: Yes Physical Exam Triage Information Reviewed: Yes Appearance: Well-Appearing, No Pain Distress, Well-Nourished Vital Signs: Initial Vital Signs Temp 98 F 01/07/18 17:55 Pulse 79 01/07/18 17:55 Resp 18 01/07/18 17:55 BP 138/71 01/07/18 17:55 Pulse Ox 99 01/07/18 17:55 Vital Signs Reviewed: Yes Eye Exam: Normal Eyes: Positive: Conjunctiva Clear ENT Exam: Normal ENT: Positive: Normal ENT inspection, Hearing grossly normal, Pharynx normal, TMs normal, Uvula midline. Negative: Nasal congestion, Tonsillar swelling, Tonsillar exudate, Trismus, Muffled voice, Hoarse voice, Dental tenderness, Sinus tenderness Dental Exam: Normal Neck exam: Normal Neck: Positive: Supple, Nontender, No Lymphadenopathy Respiratory Exam: Normal Respiratory: Positive: Chest non-tender, Lungs clear, Normal breath sounds, No respiratory distress, No accessory muscle use Cardiovascular Exam: Normal Cardiovascular: Positive: RRR, No Murmur, Pulses Normal, Brisk Capillary Refill Musculoskeletal Exam: Normal Musculoskeletal: Positive: Strength Intact, ROM Intact, No Edema Neurological Exam: Normal Neurological: Positive: Alert, Muscle Tone Normal Psychological Exam: Normal Skin Exam: Normal UC Diagnostic Evaluation - Laboratory O2 Sat by Pulse Oximetry: 99 Respiratory Course/Dx - Course Course Of Treatment: zithromax, tessalon and albuterol, increase fluids and follow with pcp prn - Differential Dx/Diagnosis Provider Diagnoses: acute bronchitis Discharge - Sign-Out/Discharge Documenting (check all that apply): Patient Departure All imaging exams completed and their final reports reviewed: No Studies - Discharge Plan Condition: Stable Disposition: HOME Prescriptions: Azithromycin TAB* [Zithromax TAB (Z-ELEANOR) 250 mg #6 tabs] 250 mg PO DAILY #4 tab Benzonatate CAP* [Tessalon 100 MG CAP*] 100 - 200 mg PO TID PRN #30 cap PRN Reason: cough Patient Education Materials: How to Use a Metered-Dose Inhaler (ED), Acute Bronchitis (ED) Referrals: KENAN Mcguire [Medical Doctor] - If Needed - Billing Disposition and Condition Condition: STABLE Disposition: Home
== END 2018-01-07 18:11 | disposition home or self-care (01) ==
LOC: UCCORT 16:40
DX: J20.9 Acute bronchitis, unspecified (principal); Z88.0 Allergy status to penicillin; Z88.8 Allergy status to other drugs, medicaments and biological substances; Z88.1 Allergy status to other antibiotic agents
CPT/HCPCS: 99213; A9270-GY; G0463

== ENCOUNTER 2018-01-10 11:03 | Emergency (ER) | payer BC ==
[2018-01-10 12:41] VITALS: BP 144/98
--- NOTE | 2018-01-10 12:56 | UC ---
Respiratory Complaint HPI - HPI Summary HPI Summary: Pt presents for evaluation of her cough.Pt was treated here 3 days ago - dx with bronchitis. Pt stareted on z pack and MDI - no spacer. Pt states feels congested and heavy in her chest. states feels like can't get "Stuff up" occasional wheeze. mild sinus congestion. No PND. No fever, chills, rash. no VELASCO , vision changes. pt without a h/o asthma. Pt has had bronchitis. Pt's dayghter with asthma. 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 Pt's medications reviewed this visit - History of Current Complaint Chief Complaint: UCRespiratory Stated Complaint: UPPER RESPIRATORY RECHECK Time Seen by Provider: 01/10/18 12:49 Hx Obtained From: Patient, Family/Training Lead, Medical Records Hx Last Menstrual Period: 12/12/17 Pain Intensity: 0 - Allergies/Home Medications Allergies/Adverse Reactions: Allergies Allergy/AdvReac Type Severity Reaction Status Date / Time amoxicillin [From Augmentin] AdvReac yeast Verified 01/10/18 12:41 infection clavulanic acid AdvReac yeast Verified 01/10/18 12:41 [From Augmentin] infection sulfamethoxazole AdvReac GI cramps Verified 01/10/18 12:41 [From Bactrim] trimethoprim [From Bactrim] AdvReac GI cramps Verified 01/10/18 12:41 Home Medications: Home Medications Albuterol HFA INHALER* [Ventolin HFA Inhaler*] 1 - 2 puff INH Q4H PRN 01/10/18 [ History Confirmed 01/10/18] PMH/Surg Hx/FS Hx/Imm Hx Previously Healthy: Yes Other History Of: Negative For: HIV, Hepatitis B, Hepatitis C, Anticoagulant Therapy - Surgical History Surgical History: Yes Surgery Procedure, Year, and Place: 2004, 2007, 2009 [place] [place]. 2009 [place]AL L[place]ATION [place]. 2010 & 2011 L[facility]OTRIPSY [facility] [place]. 02/2013 [facility] [place]. gallbladder 03/28/17 - Family History Known Family History: Positive: Diabetes Negative: Cardiac Disease, Hypertension - Social History Occupation: Employed Full-time Lives: With Family Alcohol Use: None Substance Use Type: None Smoking Status (MU): Never Smoked Tobacco Have You Smoked in the Last Year: No Review of Systems Constitutional: Fatigue ENT: Sinus Congestion Respiratory: Cough All Other Systems Reviewed And Are Negative: Yes Physical Exam - Summary Physical Exam Summary: Vital Signs Reviewed: Yes A+Ox3, coarse cough, congested Eyes: Conjunctiva Clear, GURU. EOM intact and full ENT: Hearing grossly normal TM x 2 clear, turbinates inflammed, + PND + PND, mmoist, uvula midline, no exudate, no erythema Neck: Positive: Supple Respiratory: Positive: No respiratory distress, No accessory muscle use scattered wheeze, no rhonchi + coarse cough speaking full easy sentences. Cardiovascular: RRR nl s1, s2 no m/r CBT <2 sec abd soft + BS nt/nd no guarding, no distension Musculoskeletal Exam: NORTH x 4 without difficulty Strength Intact, ROM Intact Neurological: Positive: Alert, + sensation throughout Psychological: Positive: Normal Response To Family Skin: Positive: no rash, no ecchymosis Triage Information Reviewed: Yes Vital Signs: Initial Vital Signs Temp 97.9 F 01/10/18 12:32 Pulse 80 01/10/18 12:32 Resp 20 01/10/18 12:32 BP 144/98 01/10/18 12:32 Pulse Ox 100 01/10/18 12:32 UC Diagnostic Evaluation - Laboratory O2 Sat by Pulse Oximetry: 100 - Radiology Radiology Interpretation Completed By: Radiologist - Patient Name: THEA GÓMEZ Medical Record#: [id number] Re-Evaluation - Re-Evaluation First Eval Change: Improved - Pt reports feeling markedly improved - chest congestion "better' no heaviness wheezing resolved, cough improved continue z pack spacer pt has nebulizer machine - will give tubing and albuterol pred secretion precaution Respiratory Course/Dx - Course Course Of Treatment: Pt presents reporting ongoing congestion, cough, chest fullness and congestion x 1 week. Pt using MDI and abx with little improvement. On exam, pt with coarse cough and wheeze. Will give duoneb, cxr and reassess - Differential Dx/Diagnosis Provider Diagnoses: acute bronchitis Discharge - Sign-Out/Discharge Documenting (check all that apply): Patient Departure All imaging exams completed and their final reports reviewed: Yes - Discharge Plan Condition: Stable Disposition: HOME Prescriptions: Albuterol 2.5MG/3ML (0.083%)* [Ventolin 2.5 MG/3 ML NEB.CHRIS*] 2.5 mg INH Q4H PRN #30 [email or web address] PRN Reason: wheeze Fluconazole [Diflucan 150 MG (NF)] 150 mg PO ONCE PRN #1 tab PRN Reason: vaginal yeast infection predniSONE [Deltasone 20 MG TAB] 40 mg PO DAILY #10 tab Patient Education Materials: Acute Bronchitis (ED) Forms: *Work Release Referrals: [facility] [place] [facility]IAN REFERRAL [Outside] No Primary Care Phys,NOPCP [Primary Care Provider] - Additional Instructions: - Take antibiotics exactly as prescribed until gone - Take prednisone once daily x 5 days -Use your albuterol puffer with a spacer OR nebulizer - 2 puffs ever 4 hours for the next 2 days - then as needed -Stay well hydrated - avoid excess caffeine and all alcohol - eat regular, healthy meals - Okay to take over the counter cough and decongestant medications - You have been given a prescription for medication to treat a yeast infection if you develop from the antibiotics - These infections are spread by oral secretions. Do not share eating or drinking utensils. Frequent hand washing is important. Clean items that may get your secretions on them such as cell phones, ipads, computer mouse, television remotes. Once you have been on antbiotics for 2 days, change your pillowcase and your toothbrush -Contact your doctor to arrange a follow-up appointment this week. Call your doctor, return here or go to the emergency department with any questions or concerns - Billing Disposition and Condition Condition: STABLE Disposition: Home
[2018-01-10] MEDS ORDERED: Albuterol/Ipratropium NEB.SOL* Albuterol 2.5 MG/Ipratropium 0.5 MG 3 ML INH ONE (13:06)
--- NOTE | 2018-01-10 13:21 | RAD ---
INDICATION: Productive cough and wheeze. COMPARISON: Comparison is made with a prior study from January 23, 2010. TECHNIQUE: Dual-energy PA and lateral views of the chest were obtained. FINDINGS: The heart is within normal limits in size. Mediastinal and hilar contours appear within normal limits. The lungs are clear. No pleural effusion is present. IMPRESSION: NO EVIDENCE FOR ACTIVE CARDIOPULMONARY DISEASE.
--- NOTE | 2018-01-10 21:28 | UC ---
- Progress Note Progress Note: pt called she did not get her prednisone E rxed prednisone 20 mg 2 daily for 5 days Discharge - Sign-Out/Discharge Documenting (check all that apply): Post-Discharge Follow Up All imaging exams completed and their final reports reviewed: Yes - Discharge Plan Condition: Stable Disposition: HOME Prescriptions: Albuterol 2.5MG/3ML (0.083%)* [Ventolin 2.5 MG/3 ML NEB.CHRIS*] 2.5 mg INH Q4H PRN #30 [email or web address] PRN Reason: wheeze Fluconazole [Diflucan 150 MG (NF)] 150 mg PO ONCE PRN #1 tab PRN Reason: vaginal yeast infection predniSONE [Deltasone 20 MG TAB] 40 mg PO DAILY #10 tab Patient Education Materials: Acute Bronchitis (ED) Forms: *Work Release Referrals: [facility] PHYSICIAN REFERRAL [Outside] No Primary Care Phys,NOPCP [Primary Care Provider] - Additional Instructions: - Take antibiotics exactly as prescribed until gone - Take prednisone once daily x 5 days -Use your albuterol puffer with a spacer OR nebulizer - 2 puffs ever 4 hours for the next 2 days - then as needed -Stay well hydrated - avoid excess caffeine and all alcohol - eat regular, healthy meals - Okay to take over the counter cough and decongestant medications - You have been given a prescription for medication to treat a yeast infection if you develop from the antibiotics - These infections are spread by oral secretions. Do not share eating or drinking utensils. Frequent hand washing is important. Clean items that may get your secretions on them such as cell phones, ipads, computer mouse, television remotes. Once you have been on antbiotics for 2 days, change your pillowcase and your toothbrush -Contact your doctor to arrange a follow-up appointment this week. Call your doctor, return here or go to the emergency department with any questions or concerns - Billing Disposition and Condition Condition: STABLE Disposition: Home
== END 2018-01-10 14:07 | disposition home or self-care (01) ==
LOC: UCCORT 11:03
DX: J20.9 Acute bronchitis, unspecified (principal); Z88.1 Allergy status to other antibiotic agents; Z88.0 Allergy status to penicillin; Z88.2 Allergy status to sulfonamides
CPT/HCPCS: 71046; 99212; A9270-GY; G0463

== ENCOUNTER 2018-01-20 16:41 | Emergency (ER) | payer BC ==
[2018-01-20 17:50] VITALS: BP 137/89
--- NOTE | 2018-01-20 18:26 | UC ---
General HPI - HPI Summary HPI Summary: seen here 01/07/18 for cough, congestion and wheezing with sob. tx with a z-mata and inhaler. returned 01/10/18 for worsening. tx with a nebulizer and prednisone. she stopped the prednisone with permission from [facility] after 2 days due to leg pains. she has also stopped the nebulizer x 4 days because she was improving. she returns today because of ongoing head and chest congestion plus green nasal discharge, sinus pressure and green sputum. also ongoing cough. pt admits that the cough is not as bad but won't go away. she notes the cough was non stop at onset and found it hard to catch her breath at times. denies hx asthma, copd and smoking. she has f/u with [facility] on 02/11/18. immunizations are utd. - History of Current Complaint Chief Complaint: UCRespiratory Stated Complaint: COUGH,CONGESTION Time Seen by Provider: 01/20/18 18:10 Hx Obtained From: Patient Hx Last Menstrual Period: 01/19/18 Pain Intensity: 0 - Allergy/Home Medications Allergies/Adverse Reactions: Allergies Allergy/AdvReac Type Severity Reaction Status Date / Time amoxicillin [From Augmentin] AdvReac yeast Verified 01/20/18 17:47 infection clavulanic acid AdvReac yeast Verified 01/20/18 17:47 [From Augmentin] infection sulfamethoxazole AdvReac GI cramps Verified 01/20/18 17:47 [From Bactrim] trimethoprim [From Bactrim] AdvReac GI cramps Verified 01/20/18 17:47 PMH/Surg Hx/FS Hx/Imm Hx GI/ History: Kidney Stones Other History Of: Negative For: HIV, Hepatitis B, Hepatitis C, Anticoagulant Therapy - Surgical History Surgical History: Yes Surgery Procedure, Year, and Place: 2004, 2007, 2009 C SECTIONS [place]. 2010 TUBAL LIG[place]. 2010 & 2011 LITHOTRIPSY [facility] [place]. 02/2013 D&C [facility]. gallbladder 03/28/17 - Family History Known Family History: Positive: Diabetes Negative: Cardiac Disease, Hypertension - Social History Occupation: Employed Full-time - teacher Alcohol Use: None Substance Use Type: None Smoking Status (MU): Never Smoked Tobacco Have You Smoked in the Last Year: No - Immunization History Vaccination Up to Date: Yes Review of Systems Constitutional: Negative Skin: Negative Eyes: Negative ENT: Nasal Discharge, Sinus Congestion, Sinus Pain/Tenderness Respiratory: Cough Cardiovascular: Negative Gastrointestinal: Negative Genitourinary: Negative Motor: Negative Neurovascular: Negative Musculoskeletal: Negative Neurological: Negative Psychological: Negative Is Patient Immunocompromised?: No All Other Systems Reviewed And Are Negative: Yes Physical Exam Triage Information Reviewed: Yes Appearance: Well-Appearing Vital Signs: Initial Vital Signs Temp 98.1 F 01/20/18 17:43 Pulse 76 01/20/18 17:43 Resp 16 01/20/18 17:43 BP 137/89 01/20/18 17:43 Pulse Ox 100 01/20/18 17:43 Vital Signs Reviewed: Yes Eyes: Positive: Conjunctiva Clear ENT: Positive: Pharynx normal, Nasal congestion, TMs normal, Sinus tenderness. Negative: Nasal drainage Neck: Positive: Supple, Nontender, No Lymphadenopathy Respiratory: Positive: Lungs clear, Normal breath sounds, No respiratory distress, Other: - Frequent congested cough. Cardiovascular: Positive: RRR, No Murmur Abdomen Description: Positive: Nontender, No Organomegaly, Soft Bowel Sounds: Positive: Present Musculoskeletal: Positive: ROM Intact Neurological: Positive: Alert Psychological: Positive: Age Appropriate Behavior Skin Exam: Normal Course/Dx - Course Course Of Treatment: CXR from prior visit was neg. pt non toxic and not hypoxic. she is refusing to use any steroids. I will have her resume the neb tx's. Her hx and PE support a sinusitis. The ongoing cough is prolonged but has improved; however,is possible that she has pertussis that was already tx-I will test her for this. It is also possible that she has an infection resistant to the zpak thus I will tx with doxycycline which covers sinuses and lungs. pt advised of risk for c-diff colitis and will take the risk - Differential Dx - Multi-Symptom Provider Diagnoses: sinusitis. cough Discharge - Sign-Out/Discharge Documenting (check all that apply): Patient Departure All imaging exams completed and their final reports reviewed: No Studies - Discharge Plan Condition: Stable Disposition: HOME Prescriptions: DOXYcycline CAP(*) [DOXYcycline 100MG CAP(*)] 100 mg PO BID 10 Days #20 cap Patient Education Materials: Sinusitis (ED), Acute Cough (ED) Referrals: No Primary Care Phys,NOPCP [Primary Care Provider] - Additional Instructions: RESUME THE NEBULIZER TREATMENTS EVERY 6 HOURS. TAKE A PROBIOTIC DAILY. FOLLOW UP WITH N SCHEDULED ON 02/09/18 OR SOONER IF NEEDED. - Billing Disposition and Condition Condition: STABLE Disposition: Home
[2018-01-20] MEDS ORDERED: DOXYcycline CAP(*) 100 MG PO ONE (18:42)
[2018-01-23 19:46] LABS: Bordetella pertussis PCR Negative
--- NOTE | 2018-01-24 07:12 | UC ---
- Progress Note Progress Note: brandin Mackey no change Discharge - Sign-Out/Discharge Documenting (check all that apply): Post-Discharge Follow Up All imaging exams completed and their final reports reviewed: No Studies - Discharge Plan Condition: Stable Disposition: HOME Prescriptions: DOXYcycline CAP(*) [DOXYcycline 100MG CAP(*)] 100 mg PO BID 10 Days #20 cap Patient Education Materials: Sinusitis (ED), Acute Cough (ED) Referrals: No Primary Care Phys,NOPCP [Primary Care Provider] - Additional Instructions: RESUME THE NEBULIZER TREATMENTS EVERY 6 HOURS. TAKE A PROBIOTIC DAILY. FOLLOW UP WITH N SCHEDULED ON 02/09/18 OR SOONER IF NEEDED. - Billing Disposition and Condition Condition: STABLE Disposition: Home
== END 2018-01-20 18:48 | disposition home or self-care (01) ==
LOC: UCCORT 16:41
DX: J32.9 Chronic sinusitis, unspecified (principal); R05 Cough; Z88.0 Allergy status to penicillin; Z88.1 Allergy status to other antibiotic agents; Z88.2 Allergy status to sulfonamides
CPT/HCPCS: 86615; 87798; 99212; A9270-GY; G0463

== ENCOUNTER 2018-04-13 15:06 | Emergency (ER) | payer BC ==
[2018-04-13 15:57] VITALS: BP 148/90
--- NOTE | 2018-04-13 16:15 | UC ---
Dental HPI - HPI Summary HPI Summary: Pt presents with c/o right upper molar pain and dental fracture. Pt states that she was bit something hard two days ago and her right upper molar broke. NO c/o tenderness and swelling. Has appointment at dentist next . - History of Current Complaint Chief Complaint: UCDentalProblem Stated Complaint: DENTAL COMPLAINT Time Seen by Provider: 04/13/18 16:09 Hx Obtained From: Patient Hx Last Menstrual Period: 02/11/18 ?: No Onset/Duration: Sudden Onset, Lasting Days, Still Present Severity: Moderate Pain Intensity: 8 Aggravating Factor(s): Heat, Cold, Chewing Related History: Previous Dental Care on Same Tooth, Swelling - Allergies/Home Medications Allergies/Adverse Reactions: Allergies Allergy/AdvReac Type Severity Reaction Status Date / Time amoxicillin [From Augmentin] AdvReac yeast Verified 04/13/18 15:57 infection clavulanic acid AdvReac yeast Verified 04/13/18 15:57 [From Augmentin] infection sulfamethoxazole AdvReac GI cramps Verified 04/13/18 15:57 [From Bactrim] trimethoprim [From Bactrim] AdvReac GI cramps Verified 04/13/18 15:57 Home Medications: Home Medications Ibuprofen TAB* [Motrin TAB* 800 MG] 800 mg PO ONCE 04/13/18 [History Confirmed 04/13/18] PMH/Surg Hx/FS Hx/Imm Hx Previously Healthy: Yes Other History Of: Negative For: HIV, Hepatitis B, Hepatitis C, Anticoagulant Therapy - Surgical History Surgical History: Yes Surgery Procedure, Year, and Place: 2004, 2007, 2009 C [place]. 2009 TUBAL LIGATION [place]. 2010 & 2011 [facility]RIP[facility] [place]. 02/2013 D&C [facility]. gallbladder 03/28/17 - Family History Known Family History: Positive: Diabetes Negative: Cardiac Disease, Hypertension - Social History Occupation: Employed Full-time Lives: With Family Alcohol Use: None Substance Use Type: None Smoking Status (MU): Never Smoked Tobacco Have You Smoked in the Last Year: No - Immunization History Vaccination Up to Date: Yes Review of Systems All Other Systems Reviewed And Are Negative: Yes Constitutional: Positive: Negative Skin: Positive: Negative Eyes: Positive: Negative ENT: Positive: Dental Pain Respiratory: Positive: Negative Cardiovascular: Positive: Negative Gastrointestinal: Positive: Negative Genitourinary: Positive: Negative Motor: Positive: Negative Neurovascular: Positive: Negative Musculoskeletal: Positive: Negative Neurological: Positive: Negative Psychological: Positive: Negative Is Patient Immunocompromised?: No Physical Exam Triage Information Reviewed: Yes Appearance: Well-Appearing Vital Signs: Initial Vital Signs Temp 97.8 F 04/13/18 15:53 Pulse 61 04/13/18 15:53 Resp 16 04/13/18 15:53 BP 148/90 04/13/18 15:53 Pulse Ox 100 04/13/18 15:53 Vital Signs Reviewed: Yes Eye Exam: Normal ENT Exam: Normal Dental: Positive: Percussion Tenderness @, Gross Decay/Caries @, Dental Fracture @ Neck exam: Normal Respiratory Exam: Normal Cardiovascular Exam: Normal Musculoskeletal Exam: Normal Neurological Exam: Normal Psychological Exam: Normal Dental Complaint Course/Dx - Differential Dx/Diagnosis Differential Diagnosis/Dx: Dental Abscess, Dental Caries, Fractured Tooth Provider Diagnosis: Dental abscess Discharge - Sign-Out/Discharge Documenting (check all that apply): Patient Departure All imaging exams completed and their final reports reviewed: No Studies - Discharge Plan Condition: Stable Disposition: HOME Prescriptions: Clindamycin Cap(NF) [Clindamycin Cap 300 mg Cap(NF)] 300 mg PO Q8H #21 cap Lidocaine 2% VISCOUS* [Xylocaine 2% Viscous*] 15 ml SWISH SPIT Q4H PRN #1 btl PRN Reason: Pain Patient Education Materials: Dental Abscess (ED) Referrals: [facility] [Outside] - If Needed No Primary Care Phys,NOPCP [Primary Care Provider] - Additional Instructions: Please follow up with your Dental care provider as soon as possible. - Billing Disposition and Condition Condition: STABLE Disposition: Home - Attestation Statements Provider Attestation: I was available for consult. This patient was seen by the ANA. The patient was not presented to, seen by, or examined by me. EK
== END 2018-04-13 16:23 | disposition home or self-care (01) ==
LOC: UCCORT 15:06
DX: K04.7 Periapical abscess without sinus (principal); Z88.0 Allergy status to penicillin; Z88.2 Allergy status to sulfonamides; Z88.1 Allergy status to other antibiotic agents
CPT/HCPCS: 99212; G0463

== ENCOUNTER 2018-06-15 17:54 | Emergency (ER) | payer BC ==
[2018-06-15 19:20] VITALS: BP 133/60
--- NOTE | 2018-06-15 19:28 | UC ---
Dental HPI - HPI Summary HPI Summary: Pt c/o right lower molar tooth pain. Pt has known cavity in toothand unable to get into dentist until July 2018. Pt states that pain and swelling is worsening over the last 2-3 days. - History of Current Complaint Chief Complaint: UCDentalProblem Stated Complaint: DENTAL PAIN Time Seen by Provider: 06/15/18 19:14 Hx Obtained From: Patient Hx Last Menstrual Period: 05/07/18; irregular menses ?: No Onset/Duration: Gradual Onset, Lasting Days, Still Present Severity: Moderate Pain Intensity: 8 Aggravating Factor(s): Chewing Related History: Swelling - Allergies/Home Medications Allergies/Adverse Reactions: Allergies Allergy/AdvReac Type Severity Reaction Status Date / Time amoxicillin [From Augmentin] AdvReac yeast Verified 06/15/18 19:17 infection clavulanic acid AdvReac yeast Verified 06/15/18 19:17 [From Augmentin] infection sulfamethoxazole AdvReac GI cramps Verified 06/15/18 19:17 [From Bactrim] trimethoprim [From Bactrim] AdvReac GI cramps Verified 06/15/18 19:17 PMH/Surg Hx/FS Hx/Imm Hx Previously Healthy: Yes Other History Of: Negative For: HIV, Hepatitis B, Hepatitis C, Anticoagulant Therapy - Surgical History Surgical History: Yes Surgery Procedure, Year, and Place: 2004, 2007, 2009 C [place]CTIONS [place]. 2009 TUBAL L[place]. 2010 & 2011 L[facility]OTRIPSY [facility] [place]. 02/2013 D&C [facility]. gallbladder 03/28/17 - Family History Known Family History: Positive: Diabetes Negative: Cardiac Disease, Hypertension - Social History Occupation: Employed Full-time Lives: With Family Alcohol Use: None Substance Use Type: None Smoking Status (MU): Never Smoked Tobacco Have You Smoked in the Last Year: No - Immunization History Vaccination Up to Date: Yes Review of Systems All Other Systems Reviewed And Are Negative: Yes Constitutional: Positive: Negative Skin: Positive: Negative Eyes: Positive: Negative ENT: Positive: Dental Pain Respiratory: Positive: Negative Cardiovascular: Positive: Negative Gastrointestinal: Positive: Negative Genitourinary: Positive: Negative Motor: Positive: Negative Neurovascular: Positive: Negative Musculoskeletal: Positive: Negative Neurological: Positive: Negative Psychological: Positive: Negative Is Patient Immunocompromised?: No Physical Exam Triage Information Reviewed: Yes Appearance: Well-Appearing Vital Signs: Initial Vital Signs Temp 98.1 F 06/15/18 19:17 Pulse 64 06/15/18 19:17 Resp 16 06/15/18 19:17 BP 133/60 06/15/18 19:17 Pulse Ox 100 06/15/18 19:17 Vital Signs Reviewed: Yes Eye Exam: Normal ENT Exam: Normal Dental: Positive: Percussion Tenderness @ - right lower last molar Neck exam: Normal Respiratory Exam: Normal Cardiovascular Exam: Normal Musculoskeletal Exam: Normal Neurological Exam: Normal Psychological Exam: Normal Skin Exam: Normal Dental Complaint Course/Dx - Differential Dx/Diagnosis Differential Diagnosis/Dx: Dental Abscess, Dental Caries Provider Diagnosis: Dental abscess, Toothache Discharge - Sign-Out/Discharge Documenting (check all that apply): Patient Departure All imaging exams completed and their final reports reviewed: No Studies - Discharge Plan Condition: Stable Disposition: HOME Prescriptions: Clindamycin HCl 300 mg PO Q8H #30 capsule Fluconazole 150 MG TAB* [Diflucan 150 MG TAB*] 150 mg PO ONCE #2 tablet Patient Education Materials: Toothache (ED) Referrals: [facility] [Outside] - If Needed No Primary Care Phys,NOPCP [Primary Care Provider] - Additional Instructions: PLEASE FOLLOW UP WITH YOUR DENTAL CARE PROVIDER SOON POSSIBLE. - Billing Disposition and Condition Condition: STABLE Disposition: Home
== END 2018-06-15 19:35 | disposition home or self-care (01) ==
LOC: UCCORT 17:54
DX: K04.7 Periapical abscess without sinus (principal); K08.89 Other specified disorders of teeth and supporting structures; Z88.0 Allergy status to penicillin; Z88.2 Allergy status to sulfonamides
CPT/HCPCS: 99212; G0463

== ENCOUNTER 2018-11-09 19:30 | Emergency (ER) | payer BC ==
[2018-11-09 20:03] VITALS: BP 128/77
--- NOTE | 2018-11-09 20:34 | UC ---
Knee Pain HPI - HPI Summary HPI Summary: Patient presents to urgent care for evaluation of right knee pain. Patient's 38 -year-old female who states 3 days ago she was walking downstairs.. Patient states she missed a step and her right knee "gave out". Patient states she landed on the second step did not fall down. Patient with persistent pain in the medial aspect of her right knee since this time. Patient has been walking with a limp. Patient has been taking Motrin with little improvement. Patient did not hit her head. No neck or back pain. Patient with history of knee pain. Patient states she's been under a lot of stress lately as her daughter is an inpatient in [place] status post ortho spine surgery so she has been getting much sleep or taking care of herself. Patient states she is not . Medications reviewed this visit. - History of Current Complaint Chief Complaint: UCLowerExtremity Stated Complaint: RIGHT KNEE PAIN Time Seen by Provider: 11/09/18 20:13 Hx Obtained From: Patient Hx Last Menstrual Period: 10/02/18 Pain Intensity: 7 - Allergies/Home Medications Allergies/Adverse Reactions: Allergies Allergy/AdvReac Type Severity Reaction Status Date / Time amoxicillin [From Augmentin] AdvReac yeast Verified 11/09/18 20:03 infection clavulanic acid AdvReac yeast Verified 11/09/18 20:03 [From Augmentin] infection sulfamethoxazole AdvReac GI cramps Verified 11/09/18 20:03 [From Bactrim] trimethoprim [From Bactrim] AdvReac GI cramps Verified 11/09/18 20:03 Home Medications: Home Medications Ibuprofen 800 mg PO ONCE 11/09/18 [History Confirmed 11/09/18] Sertraline* [Zoloft*] 1 tab PO DAILY 11/09/18 [History Confirmed 11/09/18] PMH/Surg Hx/FS Hx/Imm Hx Previously Healthy: Yes Other History Of: Negative For: HIV, Hepatitis B, Hepatitis C, Anticoagulant Therapy - Surgical History Surgical History: Yes Surgery Procedure, Year, and Place: 2004, 2007, 2009 [place]. 2009 [place]AL L[place]ATION [place]. 2010 & 2011 L[facility]OTRIPSY [facility] [place]. 02/2013 D&C [facility]. gallbladder 03/28/17 - Family History Known Family History: Positive: Diabetes, Non-Contributory Negative: Cardiac Disease, Hypertension - Social History Lives: With Family Alcohol Use: Occasionally Substance Use Type: None Smoking Status (MU): Never Smoked Tobacco Have You Smoked in the Last Year: No - Immunization History Vaccination Up to Date: Yes Review of Systems All Other Systems Reviewed And Are Negative: Yes Constitutional: Positive: Negative Motor: Positive: Other - right knee pain Is Patient Immunocompromised?: No Physical Exam - Summary Physical Exam Summary: Vital Signs Reviewed: Yes A+Ox3, no distress Eyes: Conjunctiva Clear ENT: Hearing grossly normal neck: supple Respiratory: Positive: No respiratory distress, No accessory muscle use Cardiovascular: skin color reflect adequate perfusion CBT < 2 sec 2+ PT Musculoskeletal Exam: + SLE + flex/ ext knee with pain with flexion > 60 neg anterior/posterior drawer Neg lateral laxity Pt with pain along medial joint line. No calf pain Neurological: Positive: Alert, ambulatory with limp + gross sensation Psychological: Positive: Normal Response To proivder Skin: Positive: no rash, no ecchymosis Triage Information Reviewed: Yes Vital Signs: Initial Vital Signs Temp 97.9 F 11/09/18 20:00 Pulse 66 11/09/18 20:00 Resp 16 11/09/18 20:00 BP 128/77 11/09/18 20:00 Pulse Ox 100 11/09/18 20:00 Knee Pain Course/Dx - Course Course Of Treatment: Patient presents for urgent care for evaluation of her right knee. Patient missed a step 3 days ago in her right knee buckled. Patient did not fall or injure herself otherwise. Patient's been walking on it with a limp since. Patient with a history of right knee pain. Patient has been taking Motrin with little improvement. On exam tenderness the medial aspect of the right joint line. Patient without any laxity. Distal CSM intact. Imaging shows some DJD to my read. Pt aware is preliminary Pt given disc of images as may see ortho in [place] by the group caring for her daughter/ Pt also give [employer] ortho contact return precautions discussed motrin/apap ice rest teddy crutches - Differential Dx/Diagnosis Provider Diagnosis: Right knee injury Discharge - Sign-Out/Discharge Documenting (check all that apply): Patient Departure All imaging exams completed and their final reports reviewed: No - Discharge Plan Condition: Stable Disposition: HOME Patient Education Materials: Knee Sprain (DC) Referrals: Matt Mayo MD [Medical Doctor] - Karrie Yu MD [Primary Care Provider] - Additional Instructions: -wear teddy wrap for comfort and support -apply ice (20 min at a time) every 2-3 hours for the next 2 days -use crutches until you can walk normally without a limp -Elevate your leg - this will help with swelling and pain - Alternate ibuprofen (advil, Motrin) 600mg and tylenol every 3 hours for pain. Take with food. Do NOT take for more than 4-5 days -Contact your doctor or the orthopedic provider to arrange a follow-up appointment next week. Contact your doctor or return with questions or concerns As discussed, your radiograph was reviewed by the provider that treated you tonight. It will be read by a radiologist tomorrow morning. If there is a finding other than that discussed with you today, you will receive a call from a care provider. - Billing Disposition and Condition Condition: STABLE Disposition: Home
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
== END 2018-11-09 21:09 | disposition home or self-care (01) ==
LOC: UCCORT 19:30
DX: S89.91XA Unspecified injury of right lower leg, initial encounter (principal); X58.XXXA Exposure to other specified factors, initial encounter; Y92.9 Unspecified place or not applicable; Z88.1 Allergy status to other antibiotic agents; Z88.0 Allergy status to penicillin; Z88.2 Allergy status to sulfonamides
CPT/HCPCS: 99213; G0463

== ENCOUNTER 2018-12-11 08:14 | Emergency (ER) | payer BC ==
--- OUTSIDE RECORDS SUMMARY | 2018-12-11 08:25 | XMS REPORT | Continuity of Care Document ---
:1980 External Reference #:[id number] Author Name Farhad Alejandre MD Address [address] [place] [id number] Care Team Providers Name Role Phone Karrie Yu M.D. - Care Team Information [employer] [facility] Problems Description No Information Available Social History Type Date Description Comments Sex Unknown Tobacco Use Start: Unknown Never Smoked Cigarettes Smoking Status Reviewed: 11/13/18 Never Smoked Cigarettes ETOH Use Occasionally consumes alcohol Tobacco Use Start: Unknown Patient denies history of smoking Recreational Drug Use Denies Drug Use Allergies, Adverse Reactions, Alerts Description No Known Drug Allergies Medications Active Medications SIG Qnty Indications Ordering Provider Date Motrin Ib as needed Unknown 200mg Tablets Sertraline HCL Karrie Yu 50mg Tablets Negin Pinon Amoxicillin Unknown 500mg Capsules Immunizations Description No Information Available Vital Signs Date Vital Result Comment 11/14/2018 10:18am BP Systolic 126 mmHg BP Diastolic 76 mmHg Body Temperature 98.4 F Heart Rate 75 /min Height 69 inches 5'9" Weight 339.00 lb BMI (Body Mass Index) 50.1 kg/m2 BSA (Body Surface Area) 2.59 m2 [place] body weight in kilograms 66 kg O2 % BldC Oximetry 99 % 01/31/2017 3:58pm BP Systolic Sitting Left Arm 126 mmHg BP Diastolic Sitting Left Arm 82 mmHg Heart Rate 86 /min Respiratory Rate 16 /min Height 69 inches 5'9" Weight 335.00 lb BMI (Body Mass Index) 49.5 kg/m2 BSA (Body Surface Area) 2.57 m2 [place] body weight in kilograms 66 kg Results Test Date Facility Test Result H/L Range Note Xray 11/14/2018 [facility], Knee, RT, < pending> [address] [place] [address] lateral [phone] Procedures Date Code Description Status 11/14/2018 31292 Radiology, Distal Femur--Knee 1 Or 2 Views Completed Medical Devices Description No Information Available Encounters Description No Information Available Assessments Date Code Description Provider 11/14/2018 M79.604 Pain in right leg Farhad Alejandre MD 11/14/2018 M17.11 Unilateral primary osteoarthritis, right knee Farhad Alejandre MD Plan of Treatment 11/14/2018 - Farhad Alejandre, MDM79.604 Pain in right legFollow up:Follow-up when [id number] Unilateral primary osteoarthritis, right knee Functional Status Description No Information Available Mental Status Description No Information Available Referrals Description No Information Available
[2018-12-11 08:33] VITALS: BP 126/66
--- NOTE | 2018-12-11 09:09 | UC ---
[facility] H[facility] - HPI Summary HPI Summary: dental pain right upper back molar / wisdom tooth x 4 days pain is 5 out of 10 , worse with chewing, better with Tylenol has dentist apt. next week no fever, no chills - History of Current Complaint Chief Complaint: UCDentalProblem Stated Complaint: DENTAL CONCERN Time Seen by Provider: 12/11/18 08:42 Hx Obtained From: Patient Hx Last Menstrual Period: 10/02/18 Onset/Duration: Gradual Onset, Lasting Days - 4, Still Present Severity: Moderate Pain Intensity: 6 Pain Scale Used: 0-10 Numeric Aggravating Factor(s): Cold, Chewing Alleviating Factor(s): OTC Meds - Allergies/Home Medications Allergies/Adverse Reactions: Allergies Allergy/AdvReac Type Severity Reaction Status Date / Time amoxicillin [From Augmentin] AdvReac yeast Verified 12/11/18 08:29 infection clavulanic acid AdvReac yeast Verified 12/11/18 08:29 [From Augmentin] infection sulfamethoxazole AdvReac GI cramps Verified 12/11/18 08:29 [From Bactrim] trimethoprim [From Bactrim] AdvReac GI cramps Verified 12/11/18 08:29 PMH/Surg Hx/FS Hx/Imm Hx - Additional Past Medical History Additional PMH: PCOS kidney stone Other History Of: Negative For: HIV, Hepatitis B, Hepatitis C, Anticoagulant Therapy - Surgical History Surgical History: Yes Surgery Procedure, Year, and Place: 2004, 2007, 2009 C SECTIONS [place]. 2009 TUBAL LIGATION [place]. 2010 & 2011 LITHOTRIPSY [facility] [place]. 02/2013 [facility] [place]. gallbladder 03/28/17 - Family History Known Family History: Positive: Diabetes, Non-Contributory Negative: Cardiac Disease, Hypertension - Social History Alcohol Use: Rare Substance Use Type: None Smoking Status (MU): Never Smoked Tobacco Have You Smoked in the Last Year: No - Immunization History Vaccination Up to Date: Yes Review of Systems All Other Systems Reviewed And Are Negative: Yes Constitutional: Positive: Negative Skin: Positive: Negative Eyes: Positive: Negative ENT: Positive: Dental Pain Is Patient Immunocompromised?: No Physical Exam Triage Information Reviewed: Yes Appearance: Well-Appearing, No Pain Distress, Obese Vital Signs: Initial Vital Signs Temp 97.6 F 12/11/18 08:29 Pulse 54 12/11/18 08:29 Resp 17 12/11/18 08:29 BP 126/66 12/11/18 08:29 Pulse Ox 100 12/11/18 08:29 Vital Signs Reviewed: Yes Eye Exam: Normal Eyes: Positive: Conjunctiva Clear ENT: Positive: Normal ENT inspection, Hearing grossly normal, Pharynx normal, TMs normal Dental: Positive: Cellulitis @. Negative: Gross Decay/Caries @, Dental Fracture @ Neck: Positive: Supple, Nontender, No Lymphadenopathy Respiratory: Positive: Chest non-tender, Lungs clear, Normal breath sounds Cardiovascular: Positive: RRR, No Murmur, Pulses Normal Dental Complaint Course/Dx - Differential Dx/Diagnosis Provider Diagnosis: Pain, dental Discharge ED - Sign-Out/Discharge Documenting (check all that apply): Patient Departure All imaging exams completed and their final reports reviewed: No Studies - Discharge Plan Condition: Stable Disposition: HOME Prescriptions: Clindamycin Cap(NF) [Clindamycin Cap 300 mg Cap(NF)] 300 mg PO Q6H #28 cap Patient Education Materials: Toothache (ED) Referrals: Karrie Yu MD [Primary Care Provider] - 5 Days - Billing Disposition and Condition Condition: STABLE Disposition: Home
== END 2018-12-11 08:56 | disposition home or self-care (01) ==
LOC: UCCORT 08:14
DX: K08.89 Other specified disorders of teeth and supporting structures (principal); Z88.0 Allergy status to penicillin; Z88.1 Allergy status to other antibiotic agents
CPT/HCPCS: 99212; G0463

== ENCOUNTER 2019-03-16 16:26 | Emergency (ER) | payer BC ==
--- OUTSIDE RECORDS SUMMARY | 2019-03-16 17:02 | XMS REPORT | Summary of Care ---
:1980 Author Organization [facility] Address [address] [facility] [place] [address] Care Team Providers Name Role Phone Karrie Yu MD Primary Care Provider Reason for Referral Refer to Department Only (Routine) Status Reason Specialty Diagnoses / Referred By Referred To Procedures Contact Contact Pending Review PODIATRY Diagnoses Plantar wart of left foot Karrie Yu MD [address] [place] [address] Scheduling Instructions Ladonna Whitmore Reason for Visit Reason Comments Follow Up 6wk f/u Encounter Details Date Type Department Care Team Description 02/06/2019 Office Visit [facility] Kathe Yu (Primary Dx); Practice Karrie Villatoro MD Plantar wart of left foot; [address] [place] [address] Gastroesophageal reflux disease [place] [address] [phone] Allergies No Known Allergiesdocumented as of this encounter (statuses as of 02/06/2019) Medications Medication Sig Dispensed Refills Start Date End Date Status escitalopram (LEXAPRO) Take 1 Tab 90 Tab 1 02/06/2019 Active 10 MG Oral by mouth TabIndications: EVERY Anxiety BEDTIME. Omeprazole delayed rel Take 20 mg 90 Cap 0 02/06/2019 Active cap 20 MG Oral CAPSULE by mouth DELAYED EVERY RELEASEIndications: BEDTIME. Gastroesophageal reflux disease without esophagitis escitalopram (LEXAPRO) Take 1 Tab 30 Tab 3 12/24/2018 02/06/2019 Discontinued 5 MG Oral by mouth TabIndications: EVERY Anxiety BEDTIME. documented as of this encounter (statuses as of 02/06/2019) Active Problems Problem Noted Date PCOS (polycystic ovarian syndrome) Anxiety Overview: on zoloft in past Nephrolithiasis Overview: calcium stones, improved stopping soda documented as of this encounter (statuses as of 02/06/2019) Immunizations Name Administration Dates Next Due Influenza (IM) Preservative Free 12/24/2018 TDAP Vaccine 03/27/2012 documented as of this encounter Social History Tobacco Use Types Packs/Day Years Used Date Never Smoker Smokeless Tobacco: Never Used Alcohol Use Drinks/Week oz/Week Comments Yes Alcohol Habits Answer Date Recorded How often do you have a drink containing alcohol? Monthly or less 08/08/2018 How many drinks containing alcohol do you have on a 1 or 2 08/08/2018 typical day when you are drinking? How often do you have six or more drinks on one Never 08/08/2018 occasion? Physical Activity Answer Date Recorded On average, how many days per week do you engage in moderate 2 days 2018 to strenuous exercise (like walking fast, running, jogging, dancing, swimming, biking, or other activities that cause a light or heavy sweat)? On average, how many minutes do you engage in exercise at Not asked this level? Stress Answer Date Recorded Do you feel stress - tense, restless, nervous, or anxious, or Very much 08/08 unable to sleep at night because your mind is troubled all the time - these days? Sex Assigned at Date Recorded Not on file Job Start Date Occupation Industry Not on file Not on file Not on file Travel History Travel Start Travel End No recent travel history available. documented as of this encounter Last Filed Vital Signs Vital Sign Reading Time Taken Comments Blood Pressure 134/52 02/06/2019 5:30 PM EST Pulse 90 02/06/2019 5:30 PM EST Temperature 37 02/06/2019 5:30 PM C (98.6 EST F) Respiratory Rate - - Oxygen Saturation 98% 02/06/2019 5:30 PM EST Inhaled Oxygen Concentration - - Weight 157.8 kg (347 lb 12.8 oz) 02/06/2019 5:30 PM EST Height 175.3 cm (5' 9") 02/06/2019 5:30 PM EST Body Mass Index 51.36 02/06/2019 5:30 PM EST documented in this encounter Patient Instructions Patient InstructionsKarrie Yu MD - 02/06/2019 5:20 PM ESTCall your human resources services specialist to treat your wart. I ordered a consult if needed. Increase Lexapro to 10 Mg daily I sent in omeprazole. After A few months we will try switching to Famotidine ( pepcid). Patient Education Acid Reflux (Gastroesophageal Reflux Disease) Discharge Instructions, Adult About this topic GERD stands for gastroesophageal reflux disease. It is sometimes just called reflux. Normally, food goes from the mouth through the food pipe and then into the belly. The food pipe is also called the esophagus. This condition happens when the contents of the belly leak into the food pipe. This leakingcan irritate the food pipe. You may feel a burning pain in your chest called heartburn. You may haveburping, bloating, and belly pain after eating. GERD can be treated in many different ways. Sometimes, doctors use drugs or suggest changes in lifestyle. Other times, diet changes or surgery is needed. What care is needed at home? Ask your doctor what you need to do when you go home. Make sure you ask questions if you do notunderstand what the doctor says. This way you will know what you need to do. Maintain a healthy weight. Avoid stress. Avoid belts and clothes that are too tight. Eat small meals more often. Do not skip meals. Do not eat large meals to make up for missed meals. Avoid eating 2 to 3 hours before bedtime. Do not to lie down for at least 2 hours after eating. Raise the head of your bed 6 to 8 inches (15 to 20 cm). Use wooden blocks under the head of thebed. Just sleeping with your head raised on pillows is not enough. It can cause discomfort and make your signs worse. Do not drink beer, wine, and mixed drinks (alcohol). Do not smoke. What follow-up care is needed? Your doctor may ask you to make visits to the office to check on your progress. Be sure to keep these visits. What drugs may be needed? The doctor may order drugs to: Relieve heartburn Prevent reflux Lessen acid production Heal the esophageal lining Will physical activity be limited? Your physical activities will not be limited. What changes to diet are needed? Limit caffeine intake. Avoid eating oranges, berries, tomatoes, and other foods high in acid. Eat only small amounts of spicy, fatty, and fried foods, or avoid them altogether. Keep track of the foods that cause your signs to become worse. Avoid or limit these food items. What problems could happen? Asthma Precancerous changes in the food pipe Long-term cough Dental problems Higher risk of cancer of the food pipe. This is esophageal cancer. Narrowing of the food pipe. This is a stricture. Open sore in the food pipe. This is an ulcer. When do I need to call the doctor? Pain or a feeling of food getting stuck in your throat Frequent throwing up or throwing up fluid that looks like blood or coffee grounds Pain in the chest or upper part of the belly Very bad heartburn that lasts for a long time Cough, hoarseness of voice, or bad breath Wheezing, shortness of breath or other problems breathing Unintended weight loss or not wanting to eat You are not feeling better in 2 to 3 days or you are feeling worse Teach Back: Helping You Understand The Teach Back Method helps you understand the information we are giving you. The idea is simple. After talking with the staff, tell them in your own words what you were just told. This helps to make sure the staff has covered each thing clearly. It also helps to explain things that may have been a bit confusing. Before going home, make sure you are able to do these: I can tell you about my condition. I can tell you what changes I need to make with my eating habits to ease the reflux. I can tell you what I will do if I am throwing up fluid that looks like blood or coffee grounds. Where can I learn more? [employer] https://familydoctor.org/condition/refluxacid-reflux/ NHS Choices https://www.nhs.uk/conditions/ectfndbbu-nlz-obwp-reflux/ Last Reviewed Date 2018-05-01 Consumer Information Use and Disclaimer This information is not specific medical advice and does not replace information you receive from your health care provider. This is only a brief summary of general information. It does NOT include allinformation about conditions, illnesses, injuries, tests, procedures, treatments, therapies, discharge instructions or life-style choices that may apply to you. You must talk with your health care provider for complete information about your health and treatment options. This information should not beused to decide whether or not to accept your health care providers advice, instructions or recommendations. Only your health care provider has the knowledge and training to provide advice that isright for you. Copyright Copyright 2019 [employer] and its affiliates and/or licensors. All rights reserved. documented in this encounter Progress Notes Karrie Yu MD - 02/06/2019 5:20 PM EST Chief Complaint Patient presents with Follow Up Prior PCP Ladonna Werner Housing Management Officer: Dr Waterman Has PCOS Chief Complaint: Thea Rao is a 38-y.o. female who presents for follow anxiety History of Present Illness: Here for follow up of anxiety follow up. Last visit we started a trial of Lexapro instead, She is sleeping better She tolerating it better, but feels better. She would like a bit larger dose. She reports her weight last visit was error, was 349 not 319 Her left foot wart persists, painful. She would like to see podiatry Has wart left mid foot, plantar. Has tried over the counter topicals and OTC freeze. Plan last visit: Continue home treatment for wart and call for treatment here if it worsens. These take months to go away. She Reported last visits; Anxiety 4.5 yr, on zoloft and xanax in past, therapy She has found the anxiety is a constant, has ruminating thoughts. sertraline caused Headaches so she stopped it. 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 Diet and exercise advised. She has GERD, was on ranitidine over the counter but with the recall she bought omeprazole. Would like an prescription. Results for THEA RAO ( ) as of 12/24/2018 10:58 Ref. Range 12/11/2018 00:00 Cholesterol (External) Unknown 200 Triglycerides (External) Unknown 87 HDL (External) Unknown 43.7 LDL (External) Unknown 139 Glyco A1c (External) Unknown 5 Glucose Fasting Latest Units: MG/DL 97 GLUCOSE, BLOOD FASTING (EXTERNAL) Unknown Rpt TSH (External) Unknown 1.08 CBC normal CMP normal Patient Active Problem List Diagnosis PCOS (polycystic ovarian syndrome) Anxiety Nephrolithiasis Past Medical History: Diagnosis Date Anxiety on zoloft in past Nephrolithiasis calcium stones, improved stopping soda PCOS (polycystic ovarian syndrome) Past Surgical History: Procedure Laterality Date SECTION NEC 3 LITHOTRIPSY LITHOTRIPSY x 4 OR LIGATE FALLOPIAN TUBE OR REMOVAL GALLBLADDER 03/2017 No current outpatient medications on file as of 08/08/2018. No Known Allergies Social History Socioeconomic History Marital status: Spouse name: Jonathan Rao Number of children: 3 Years of education: Not on file Highest education level: Not on file Occupational History Occupation: teacher [employer] Social Needs Financial resource strain: Not on file Food insecurity: Worry: Not on file Inability: Not on file Transportation needs: Medical: Not on file Non-medical: Not on file Tobacco Use Smoking status: Never Smoker Smokeless tobacco: Never Used Substance and Sexual Activity Alcohol use: Yes Frequency: Monthly or less Drinks per session: 1 or 2 Binge frequency: Never Drug use: Not Currently Sexual activity: Yes Partners: Male control/protection: Surgical Lifestyle Physical activity: Days per week: 2 days Minutes per session: Not on file Stress: Very much Relationships Social connections: Talks on phone: Not on file Gets together: Not on file Attends synagogue service: Not on file Active member of club or organization: Not on file Attends meetings of clubs or organizations: Not on file Relationship status: Not on file Intimate partner violence: Fear of current or ex partner: Not on file Emotionally abused: Not on file Physically abused: Not on file Forced sexual activity: Not on file Other Topics Concern Not on file Social History Narrative Lives with , 3 children shared with ex- Teacher recores from primary care provider received. No immunizations Family History Problem Relation Age of Onset Allergies Mother Diabetes Father type 2 High Cholesterol Father Arthritis Sister connective tissue disorder Genetic Daughter Arthritis Daughter scoliosis Psychiatry Daughter ADHD Allergies Son nut and seasonal No Known Problems Son Cancer Maternal Grandmother leukemia Stroke Paternal Grandfather 5 strokes Health Maintenance Topic Date Due PAP SMEAR 1980 DEPRESSION SCREENING 12/25/2019 INFLUENZA VACCINE Completed HPV IMMUNIZATION SERIES Aged Out MENINGOCOCCAL VACCINE IMM Aged Out PNEUMOCOCCAL 0-64 YRS Aged Out Review of Systems - General ROS: negative for - chills or fever, unexpected weight changes ENT ROS: negative for - headaches, nasal congestion Respiratory ROS: negative for - cough,shortness of breath Cardiovascular ROS: negative for - chest pain Gastrointestinal ROS: no abdominal pain Neuro: denies headache now off the sertraline Psych: Denies depression, but says she has anxiety: improving but still present. Denies suicidal or homicidal ideation. PHYSICAL EXAMINATION: BP 134/52 (BP Location: Right arm, Patient Position: Sitting) | Pulse 90 | Temp 98.6 F (37 C) (Tympanic) | Ht 5' 9" (1.753 m) | Wt 347 lb 12.8 oz (157.8 kg) | SpO2 98% | BMI 51.36 kg/m Physical Examination: General appearance - alert, well appearing, and in no distress Mental status - alert, oriented to person, place, and time, normal mood, behavior, speech, dress, motor activity, and thought processes Eyes - pupils equal, sclera anicteric Neck - supple, no cervical or supraclavicular adenopathy, carotids upstroke normal bilaterally, no bruits, thyroid exam: thyroid is normal in size without nodules or tenderness, no neck masses palpated. Chest/Lungs - clear to auscultation, no wheezes, rales or rhonchi, symmetric air entry, good aeration Heart - normal rate, regular rhythm, normal S1, S2, no murmurs, rubs, clicks or gallops Abdomen - soft, non tender on palpation, BSNA, no HSM, no masses Neurological - alert, oriented, normal speech, no gross focal findings or movement disorder noted Extremities - dorsalis pedis pulses normal, no pedal edema, no clubbing or cyanosis Left foot: Plantar wart noted, larger.. ASSESSMENT/PLAN: ICD-9-CM ICD-10-CM 1. Anxiety 300.00 F41.9 escitalopram (LEXAPRO) 10 MG Oral Tab 2. Plantar wart of left foot 078.12 B07.0 REFER TO PODIATRY 3. Gastroesophageal reflux disease without esophagitis 530.81 K21.9 Omeprazole delayed rel cap 20 MGOral CAPSULE DELAYED RELEASE Patient Instructions Call your human resources services specialist to treat your wart. I ordered a consult if needed. Increase Lexapro to 10 Mg daily I sent in omeprazole. After A few months we will try switching to Famotidine ( pepcid). Patient Education Acid Reflux (Gastroesophageal Reflux Disease) Discharge Instructions, Adult About this topic GERD stands for gastroesophageal reflux disease. It is sometimes just called reflux. Normally, food goes from the mouth through the food pipe and then into the belly. The food pipe is also called the esophagus. This condition happens when the contents of the belly leak into the food pipe. This leakingcan irritate the food pipe. You may feel a burning pain in your chest called heartburn. You may haveburping, bloating, and belly pain after eating. GERD can be treated in many different ways. Sometimes, doctors use drugs or suggest changes in lifestyle. Other times, diet changes or surgery is needed. What care is needed at home? Ask your doctor what you need to do when you go home. Make sure you ask questions if you do notunderstand what the doctor says. This way you will know what you need to do. Maintain a healthy weight. Avoid stress. Avoid belts and clothes that are too tight. Eat small meals more often. Do not skip meals. Do not eat large meals to make up for missed meals. Avoid eating 2 to 3 hours before bedtime. Do not to lie down for at least 2 hours after eating. Raise the head of your bed 6 to 8 inches (15 to 20 cm). Use wooden blocks under the head of thebed. Just sleeping with your head raised on pillows is not enough. It can cause discomfort and make your signs worse. Do not drink beer, wine, and mixed drinks (alcohol). Do not smoke. What follow-up care is needed? Your doctor may ask you to make visits to the office to check on your progress. Be sure to keep these visits. What drugs may be needed? The doctor may order drugs to: Relieve heartburn Prevent reflux Lessen acid production Heal the esophageal lining Will physical activity be limited? Your physical activities will not be limited. What changes to diet are needed? Limit caffeine intake. Avoid eating oranges, berries, tomatoes, and other foods high in acid. Eat only small amounts of spicy, fatty, and fried foods, or avoid them altogether. Keep track of the foods that cause your signs to become worse. Avoid or limit these food items. What problems could happen? Asthma Precancerous changes in the food pipe Long-term cough Dental problems Higher risk of cancer of the food pipe. This is esophageal cancer. Narrowing of the food pipe. This is a stricture. Open sore in the food pipe. This is an ulcer. When do I need to call the doctor? Pain or a feeling of food getting stuck in your throat Frequent throwing up or throwing up fluid that looks like blood or coffee grounds Pain in the chest or upper part of the belly Very bad heartburn that lasts for a long time Cough, hoarseness of voice, or bad breath Wheezing, shortness of breath or other problems breathing Unintended weight loss or not wanting to eat You are not feeling better in 2 to 3 days or you are feeling worse Teach Back: Helping You Understand The Teach Back Method helps you understand the information we are giving you. The idea is simple. After talking with the staff, tell them in your own words what you were just told. This helps to make sure the staff has covered each thing clearly. It also helps to explain things that may have been a bit confusing. Before going home, make sure you are able to do these: I can tell you about my condition. I can tell you what changes I need to make with my eating habits to ease the reflux. I can tell you what I will do if I am throwing up fluid that looks like blood or coffee grounds. Where can I learn more? [employer] https://familydoctor.org/condition/refluxacid-reflux/ NHS Choices https://www.nhs.uk/conditions/ikhuttduw-hgk-efwq-reflux/ Last Reviewed Date 2018-05-01 Consumer Information Use and Disclaimer This information is not specific medical advice and does not replace information you receive from your health care provider. This is only a brief summary of general information. It does NOT include allinformation about conditions, illnesses, injuries, tests, procedures, treatments, therapies, discharge instructions or life-style choices that may apply to you. You must talk with your health care provider for complete information about your health and treatment options. This information should not beused to decide whether or not to accept your health care providers advice, instructions or recommendations. Only your health care provider has the knowledge and training to provide advice that isright for you. Copyright Copyright 2019 [employer] and its affiliates and/or licensors. All rights reserved. Author: Karrie Yu MD 02/06/2019 19:16 documented in this encounter Plan of Treatment Name Type Priority Associated Diagnoses Order Schedule REFER TO PODIATRY Referral Routine Plantar wart of left foot Expected: , Expires: 02/07/2020 Health Maintenance Due Date Last Done Comments PAP SMEAR 1980 DEPRESSION SCREENING 12/25/2019 12/24/2018 INFLUENZA VACCINE Completed 12/24/2018 HPV IMMUNIZATION SERIES Aged Out No longer eligible based on patient's age to complete this topic MENINGOCOCCAL VACCINE IMM Aged Out No longer eligible based on patient's age to complete this topic PNEUMOCOCCAL 0-64 YRS Aged Out No longer eligible based on patient's age to complete this topic documented as of this encounter Results Not on filedocumented in this encounter Visit Diagnoses Diagnosis Anxiety - Primary Anxiety state, unspecified Plantar wart of left foot Plantar wart Gastroesophageal reflux disease without esophagitis Esophageal reflux documented in this encounter Insurance Payer Benefit Plan / Subscriber ID Effective Dates Phone Address Type Group [employer] xxxxxxxxxxxx 2013-Present [employer] documented as of this encounter
[2019-03-16 17:04] VITALS: BP 155/73
--- NOTE | 2019-03-16 17:14 | UC ---
Throat Pain/Nasal [place] HPI - HPI Summary HPI Summary: 38-year-old female presents with one-week history of nasal congestion, sinus pressure, mild sore throat, and occasional nonproductive cough. States over the past 3 days her symptoms have been progressively getting worse especially severe maxillary sinus tenderness and right ear pain. Reports she has been using [id number] Sudafed and ibuprofen with minimal relief in her symptoms. Denies fever, chills, ear drainage, tinnitus, vertigo, hearing loss, dysphagia, chest pain, shortness of breath, abdominal pain, nausea, or vomiting. - History of Current Complaint Chief Complaint: UCGeneralIllness Stated Complaint: SINUS COMPLAINT Time Seen by Provider: 03/16/19 16:59 Hx Obtained From: Patient Hx Last Menstrual Period: 10/02/18 Pain Intensity: 0 - Allergies/Home Medications Allergies/Adverse Reactions: Allergies Allergy/AdvReac Type Severity Reaction Status Date / Time amoxicillin [From Augmentin] AdvReac yeast Verified 03/16/19 17:01 infection clavulanic acid AdvReac yeast Verified 03/16/19 17:01 [From Augmentin] infection sulfamethoxazole AdvReac GI cramps Verified 03/16/19 17:01 [From Bactrim] trimethoprim [From Bactrim] AdvReac GI cramps Verified 03/16/19 17:01 Home Medications: Home Medications Escitalopram * [Lexapro *] 5 mg PO DAILY 03/16/19 [History Confirmed 03/16/19] Ibuprofen TAB* [Motrin TAB* 800 MG] 800 mg PO ONCE 03/16/19 [History Confirmed 03/16/19] Pseudoephedrine TAB* [Sudafed TAB*] 30 mg PO Q6HR PRN 03/16/19 [History Confirmed 03/16/19] PMH/Surg Hx/FS Hx/Imm Hx Previously Healthy: Yes - Denies significant PMH Other History Of: Negative For: HIV, Hepatitis B, Hepatitis C, Anticoagulant Therapy - Surgical History Surgical History: Yes Surgery Procedure, Year, and Place: 2004, 2007, 2009 C SECTIONS [place]. 2009 [place]AL [place]. 2010 & 2011 [facility] [place]. 02/2013 [facility] [place]. gallbladder 03/28/17 - Family History Known Family History: Positive: Diabetes Negative: Cardiac Disease, Hypertension - Social History Occupation: Employed Full-time Lives: With Family Alcohol Use: Rare Substance Use Type: None Smoking Status (MU): Never Smoked Tobacco Have You Smoked in the Last Year: No - Immunization History Vaccination Up to Date: Yes Review of Systems All Other Systems Reviewed And Are Negative: Yes Constitutional: Negative: Fever, Chills Skin: Negative: Rash Eyes: Negative: Drainage, Eye Redness ENT: Positive: Sore Throat, Ear Ache, Nasal Discharge, Sinus Congestion, Sinus Pain/Tenderness Respiratory: Positive: Cough. Negative: Shortness Of Breath Cardiovascular: Negative: Palpitations, Chest Pain Gastrointestinal: Negative: Abdominal Pain, Vomiting, Nausea Genitourinary: Positive: Negative Musculoskeletal: Positive: Negative Neurological: Positive: Negative Is Patient Immunocompromised?: No Physical Exam - Summary Physical Exam Summary: GENERAL APPEARANCE: Alert and cooperative obese female who appears to be in no acute distress. EYES: Conjunctiva clear. No drainage. EARS: External auditory canals and tympanic membranes clear, hearing grossly intact. NOSE: Moderate to severe nasal congestion. No nasal discharge. Maxillary sinus tenderness. THROAT: Pharyngeal cobblestoning with postnasal drip. No tonsilar inflammation , swelling, exudate, or lesions. Uvula midline. NECK: Neck supple, non-tender without lymphadenopathy. CARDIAC: Normal S1 and S2. No S3, S4 or murmurs. Rhythm is regular. There is no peripheral edema, cyanosis or pallor. Extremities are warm and well perfused. Capillary refill is less than 2 seconds. Peripheral pulses intact. LUNGS: Clear to auscultation without rales, rhonchi, wheezing or diminished breath sounds. ABDOMEN: Positive bowel sounds. Soft, nondistended, nontender. No guarding or rebound. No masses or hepatosplenomegally. MUSKULOSKELETAL: ROM intact to all extremities. No joint erythema or tenderness. Normal muscular development. Normal gait. SKIN: Skin normal color, texture and turgor with no lesions or eruptions. Triage Information Reviewed: Yes Vital Signs: Initial Vital Signs Temp 97.3 F 03/16/19 17:00 Pulse 71 03/16/19 17:00 Resp 16 03/16/19 17:00 BP 155/73 03/16/19 17:00 Pulse Ox 99 03/16/19 17:00 Vital Signs Reviewed: Yes Throat Pain/Nasal Course/Dx - Course Course Of Treatment: 38-year-old female presents with one-week history of nasal congestion, sinus pressure, mild sore throat, and occasional nonproductive cough. States over the past 3 days her symptoms have been progressively getting worse especially severe maxillary sinus tenderness and right ear pain. Reports she has been using [id number] Sudafed and ibuprofen with minimal relief in her symptoms. Denies fever, chills, ear drainage, tinnitus, vertigo, hearing loss, dysphagia, chest pain, shortness of breath, abdominal pain, nausea, or vomiting. Afebrile. Hypertensive otherwise vital signs stable. Patient is in moderate severe nasal congestion, maxillary sinus tenderness, pharyngeal cobblestoning with postnasal drip, and otherwise unremarkable exam. With her history of progressively worsening symptoms will treat her with doxycycline 100 mg twice a day 7 days as well as recommend symptomatic treatment including saline rinses, fluticasone nasal spray, and continued use of the Sudafed. She is to follow-up with the primary care provider in 3-5 days if symptoms are not improving. Anticipatory guidance and warning symptoms reviewed with the patient. Verbalizes understanding and agrees to plan of care. - Differential Dx/Diagnosis Differential Diagnosis/HQI/PQRI: Influenza, Sinusitis, URI Provider Diagnosis: Acute sinusitis Discharge ED - Sign-Out/Discharge Documenting (check all that apply): Patient Departure All imaging exams completed and their final reports reviewed: No Studies - Discharge Plan Condition: Stable Disposition: HOME Prescriptions: Doxycycline Hyclate 100 mg PO BID 7 Days #14 tablet Fluticasone NASAL SPRAY 50MCG* [Flonase NASAL SPRAY 50MCG*] 2 spray BOTH NARES DAILY #1 btl Patient Education Materials: Sinusitis (ED) Referrals: Karrie Yu MD [Primary Care Provider] - 3 Days (Follow up in 3-5 days if symptoms do not improve.) Additional Instructions: Your history and exam are consistent with a sinus infection. Based on the duration and worsening of your symptoms we will start you on an antibiotic to treat the infection. Start doxycycline 100 mg 1 tab twice a day for 7 days. Do not drink milk, eat milk products, or takes supplements containing calcium for at least 2 hours before after taking this medication as the calcium can affect the absorption. This antibiotic will also make you more sensitive to the sunlight therefore it is recommended that you try to avoid sun exposure while taking. If you must be outdoors take appropriate precautions including sunscreen, long sleeves, and hat. Drink plenty of fluids to avoid dehydration especially if you are running any fever. Use a saline rinse kit such as Neti Pot or NeilMed at least twice a day to help thin secretions and promote drainage of the sinuses. Use fluticasone (Flonase) nasal spray 2 sprays each nostril once daily. Use an over the counter decongestant such as Sudafed according to directions to help with congestion. Take over the counter acetaminophen (Tylenol) or ibuprofen (Advil, Motrin) according to directions as needed for pain or fever. Follow up with your primary care provider in 3-5 days if symptoms persist. Seek immediate medical attention in the emergency room if you have fever greater than 100.5 F despite taking acetaminophen or ibuprofen, have chest pain , difficulty breathing, are unable to swallow, or have any worsening of symptoms. - Billing Disposition and Condition Condition: STABLE Disposition: Home
== END 2019-03-16 17:30 | disposition home or self-care (01) ==
LOC: UCCORT 16:26
DX: J01.90 Acute sinusitis, unspecified (principal); J02.9 Acute pharyngitis, unspecified; R05 Cough; Z88.0 Allergy status to penicillin; Z88.2 Allergy status to sulfonamides
CPT/HCPCS: 99212; G0463

== ENCOUNTER 2019-04-23 15:23 | Emergency (ER) | payer BC ==
--- OUTSIDE RECORDS SUMMARY | 2019-04-23 15:56 | XMS REPORT | Summary of Care ---
:1980 Author Organization [facility] Address [address] [place] [address] Care Team Providers Name Role Phone Karrie Yu MD Primary Care Provider Reason for Visit Reason Comments URI 10 days ago went to urgent care, abx tx, been done with abx 3 days, cough, sinus pressure, unable to breath at night, headache, Encounter Details Date Type Department Care Team Description 03/29/2019 Office Visit [facility] Gigi, Acute recurrent frontal sinusitis (Primary Dx); Practice Karrie Villatoro MD Other non-recurrent acute nonsuppurative otitis media of right ear [address] [place] [address] [place] [address] [phone] Allergies Active Allergy Reactions Severity Noted Date Comments Augmentin GI Reaction Low 03/29/2019 Sensitivity, not allergy documented as of this encounter (statuses as of 03/29/2019) Medications Medication Sig Dispensed Refills Start Date End Date Status escitalopram (LEXAPRO) 10 Take 1 Tab by 90 Tab 1 02/06/2019 Active MG Oral TabIndications: mouth EVERY Anxiety BEDTIME. Omeprazole delayed rel Take 20 mg by 90 Cap 0 02/06/2019 Active cap 20 MG Oral CAPSULE mouth EVERY DELAYED BEDTIME. RELEASEIndications: Gastroesophageal reflux disease without esophagitis Cefdinir (OMNICEF) 300 MG Take 1 Cap by 20 Cap 0 03/29/2019 04/08/2019 Active Oral CapIndications: mouth TWICE Acute recurrent frontal DAILY for 10 sinusitis, Other days. non-recurrent acute nonsuppurative otitis media of right ear documented as of this encounter (statuses as of 03/29/2019) Active Problems Problem Noted Date PCOS (polycystic ovarian syndrome) Anxiety Overview: on zoloft in past Nephrolithiasis Overview: calcium stones, improved stopping soda documented as of this encounter (statuses as of 03/29/2019) Immunizations Name Administration Dates Next Due Influenza [...] Sign Reading Time Taken Comments Blood Pressure 138/80 03/29/2019 11:57 AM EST Pulse 70 03/29/2019 11:57 AM EST Temperature 37.2 03/29/2019 11:57 AM C (98.9 EST F) Respiratory Rate 20 03/29/2019 11:57 AM EST Oxygen Saturation 97% 03/29/2019 11:57 AM EST Inhaled Oxygen Concentration - - Weight 158.8 kg (350 lb 3.2 oz) 03/29/2019 11:57 AM EST Height 175.3 cm (5' 9") 03/29/2019 11:57 AM EST Body Mass Index 51.72 03/29/2019 11:57 AM EST documented in this encounter Patient Instructions Patient InstructionsKarrie Yu MD - 03/29/2019 11:40 AM ESTYou appear to have sinusitis and a right ear infection. Rest, drink plenty of fluids. Return if worsening, or if not better in 7-01 days. You can try nasal decongestant spray such as Afrin, for 2-3 days max and use nasal saline spray. You have been prescribed an antibiotic for treatment of your condition. It is important to rememberthat antibiotics treat bacterial infections, not viral infections. In order for them to be effective - you must take ALL of the medication and take it exactly as prescribed. FINISH THE MEDICATION - even if you are feeling better. Antibiotics can cause stomach upset and diarrhea, and increase the risk of C. Difficile Colitis. You can help decrease these symptoms/risks by taking a probiotic while using the medication (Lizett Thornton for example). Take your antibiotic with food unless otherwise recommended by the pharmacist. documented in this encounter Progress Notes Karrie Yu MD - 03/29/2019 11:40 AM EST PATIENT: Tess Rao : 1980 DATE OF SERVICE: 03/29/2019 CHIEF COMPLAINT: Chief Complaint Patient presents with URI 10 days ago went to urgent care, abx tx, been done with abx 3 days, cough, sinus pressure, unable to breath at night, headache, Subjective HISTORY OF PRESENT ILLNESS: Tess Rao is a 38-y.o. female. Here with continue upper respiratory infection, was seen at urgent care last week and given antibiotics, doxy. Sinus pain, headaches and ear pressure are back. Nursing Notes: Mare Paula LPN 03/29/2019 11:59 AM Sign at exiting of workspace Chief Complaint Patient presents with URI 10 days ago went to urgent care, abx tx, been done with abx 3 days, cough, sinus pressure, unable to breath at night, headache, URI The history is provided by the patient. This is a recurrent problem. The current episode started 1 to 4 weeks ago. The problem has been rapidly worsening. There has been no fever. Associated symptoms include congestion, ear pain, plugged ear sensation, sinus pain and sore throat. Pertinent negatives include no chest pain, no diarrhea, no nausea, no vomiting, no rhinorrhea, no cough and no wheezing. She has tried other meds, increased fluids and rest ( antibiotics from urgent care: doxvero) for the symptoms. Past Medical History: Diagnosis Date Anxiety on zoloft in past Nephrolithiasis calcium stones, improved stopping soda PCOS (polycystic ovarian syndrome) Family History Problem Relation Age of Onset Allergies Mother Diabetes Father type 2 High Cholesterol Father Arthritis Sister connective tissue disorder Genetic Daughter Arthritis Daughter scoliosis Psychiatry Daughter ADHD Allergies Son nut and seasonal No Known Problems Son Cancer Maternal Grandmother leukemia Stroke Paternal Grandfather 5 strokes Current Outpatient Medications Medication Sig Cefdinir (OMNICEF) 300 MG Oral Cap Take 1 Cap by mouth TWICE DAILY for 10 days. escitalopram (LEXAPRO) 10 MG Oral Tab Take 1 Tab by mouth EVERY BEDTIME. Omeprazole delayed rel cap 20 MG Oral CAPSULE DELAYED RELEASE Take 20 mg by mouth EVERY BEDTIME. No current facility-administered medications for this visit. Allergies Allergen Reactions Augmentin GI Reaction Sensitivity, not allergy Social History Socioeconomic History Marital status: Spouse name: Jonathan Rao Number of children: 3 Years of education: Not on file Highest education level: Not on file Occupational History Occupation: teacher [employer] Social Needs Financial resource strain: Not on file Food insecurity Worry: Not on file Inability: Not on file Transportation needs Medical: Not on file Non-medical: Not on file Tobacco Use Smoking status: Never Smoker Smokeless tobacco: Never Used Substance and Sexual Activity Alcohol use: Yes Frequency: Monthly or less Drinks per session: 1 or 2 Binge frequency: Never Drug use: Not Currently Sexual activity: Yes Partners: Male control/protection: Surgical Lifestyle Physical activity Days per week: 2 days Minutes per session: Not on file Stress: Very much Relationships Social connections Talks on phone: Not on file Gets together: Not on file Attends rastafarian service: Not on file Active member of club or organization: Not on file Attends meetings of clubs or organizations: Not on file Relationship status: Not on file Intimate partner violence Fear of current or ex partner: Not on file Emotionally abused: Not on file Physically abused: Not on file Forced sexual activity: Not on file Other Topics Concern Not on file Social History Narrative Lives with , 3 children shared with ex- Teacher recores from primary care provider received. No immunizations REVIEW OF SYSTEMS: Review of Systems Constitutional: Positive for malaise/fatigue. Negative for fever and weight loss. HENT: Positive for congestion, ear pain, sinus pain and sore throat. Negative for ear discharge, nosebleeds and rhinorrhea. Eyes: Negative for blurred vision and redness. Respiratory: Negative for cough, hemoptysis, sputum production, shortness of breath, wheezing and stridor. Cardiovascular: Negative for chest pain, palpitations and leg swelling. Gastrointestinal: Negative for diarrhea, nausea and vomiting. Objective PHYSICAL EXAM: VITALS: BP 138/80 (BP Location: Left arm, Patient Position: Sitting) | Pulse 70 | Temp 98.9 F(37.2 C) (Tympanic) | Resp 20 | Ht 5' 9" (1.753 m) | Wt 350 lb 3.2 oz (158.8 kg) | SpO2 97%| BMI 51.72 kg/m Body mass index is 51.72 kg/m. Physical Exam Constitutional: General: She is not in acute distress. Appearance: Normal appearance. She is ill-appearing. She is not toxic- appearing or diaphoretic. HENT: Head: Normocephalic and atraumatic. Right Ear: External ear normal. Left Ear: External ear normal. Ears: Comments: Right TM is red, bulging Nose: Congestion and rhinorrhea present. Mouth/Throat: Mouth: Mucous membranes are moist. Pharynx: Posterior oropharyngeal erythema present. No oropharyngeal exudate. Eyes: Conjunctiva/sclera: Conjunctivae normal. Neck: Musculoskeletal: Normal range of motion and neck supple. No neck rigidity or muscular tenderness. Vascular: No carotid bruit. Cardiovascular: Rate and Rhythm: Normal rate and regular rhythm. Pulmonary: Effort: Pulmonary effort is normal. Breath sounds: No stridor. No wheezing, rhonchi or rales. Abdominal: General: There is no distension. Palpations: Abdomen is soft. There is no mass. Tenderness: There is no abdominal tenderness. There is no guarding or rebound. Hernia: No hernia is present. Lymphadenopathy: Cervical: No cervical adenopathy. Neurological: General: No focal deficit present. Mental Status: She is alert and oriented to person, place, and time. Psychiatric: Mood and Affect: Mood normal. ASSESSMENT / IMPRESSION: ICD-9-CM ICD-10-CM 1. Acute recurrent frontal sinusitis 461.1 J01.11 Cefdinir (OMNICEF) 300 MG Oral Cap 2. Other non-recurrent acute nonsuppurative otitis media of right ear 381.00 H65.191 Cefdinir (OMNICEF) 300 MG Oral Cap Plan Patient Instructions You appear to have sinusitis and a right ear infection. Rest, drink plenty of fluids. Return if worsening, or if not better in 7-01 days. You can try nasal decongestant spray such as Afrin, for 2-3 days max and use nasal saline spray. You have been prescribed an antibiotic for treatment of your condition. It is important to rememberthat antibiotics treat bacterial infections, not viral infections. In order for them to be effective - you must take ALL of the medication and take it exactly as prescribed. FINISH THE MEDICATION - even if you are feeling better. Antibiotics can cause stomach upset and diarrhea, and increase the risk of C. Difficile Colitis. You can help decrease these symptoms/risks by taking a probiotic while using the medication (Hillary Cultureyeny for example). Take your antibiotic with food unless otherwise recommended by the pharmacist. Author: Karrie Yu MD 03/29/2019 12:25 documented in this encounter Plan of Treatment Health Maintenance Due Date Last Done Comments PAP SMEAR 2001 DEPRESSION SCREENING 12/25/2019 12/24/2018 DTaP/Tdap/Td Vaccines (2 - Tdap) 03/27/2022 03/27/2012 INFLUENZA VACCINE Completed 12/24/2018 HEPATITIS A IMMUNIZATION SERIES Aged Out No longer eligible based on patient's age to complete this topic HPV IMMUNIZATION SERIES Aged Out No longer eligible based on patient's age to complete this topic MENINGOCOCCAL VACCINE IMM Aged Out No longer eligible based on patient's age to complete this topic PNEUMOCOCCAL 0-64 YRS Aged Out No longer eligible based on patient's age to complete this topic documented as of this encounter Results Not on filedocumented in this encounter Visit Diagnoses Diagnosis Acute recurrent frontal sinusitis Acute frontal sinusitis Other non-recurrent acute nonsuppurative otitis media of right ear documented in this encounter Insurance Payer Benefit Plan / Subscriber ID Effective Dates Phone Address Type Group [employer] 2013-Present [employer] documented as of this encounter
[2019-04-23 16:04] VITALS: BP 145/76
--- NOTE | 2019-04-23 17:06 | UC ---
Abdominal Pain Female HPI - HPI Summary HPI Summary: 39 yo female has had nausea x 2 days some intermittent lower abd pain no fever no UTI symptoms no vomiting or diarrhea - History of Current Complaint Chief Complaint: UCGeneralIllness Stated Complaint: URINARY COMPLAINT Time Seen by Provider: 04/23/19 16:52 Hx Obtained From: Patient Hx Last Menstrual Period: 10/02/18 Onset/Duration: Sudden Onset, Lasting Days Timing: Constant Severity Initially: Mild Severity Currently: Mild Pain Intensity: 4 Pain Scale Used: 0-10 Numeric Location: Suprapubic Radiates: No Character: Cramping, Other - intermittent Aggravating Factor(s): Nothing Alleviating Factor(s): Nothing Associated Signs and Symptoms: Positive: Nausea. Negative: Diaphoresis, Fever, Cough, Chest Pain, Dizzy, Back Pain, Constipation, Blood in Stool, Urinary Symptoms, Decreased Appetite, Vaginal Bleeding, Vaginal Discharge, Vomiting, Diarrhea Female Torso: 1 - crampy pain Allergies/Adverse Reactions: Allergies Allergy/AdvReac Type Severity Reaction Status Date / Time amoxicillin [From Augmentin] AdvReac yeast Verified 04/23/19 16:04 infection clavulanic acid AdvReac yeast Verified 04/23/19 16:04 [From Augmentin] infection sulfamethoxazole AdvReac GI cramps Verified 04/23/19 16:04 [From Bactrim] trimethoprim [From Bactrim] AdvReac GI cramps Verified 04/23/19 16:04 PMH/Surg Hx/FS Hx/Imm Hx Previously Healthy: Yes - PCOS Other History Of: Negative For: HIV, Hepatitis B, Hepatitis C, Anticoagulant Therapy - Surgical History Surgical History: Yes Surgery Procedure, Year, and Place: 2004, 2007, 2009 C [place]. 2009 [place]AL [place]. 2010 & [place] [facility] [place]. gallbladder 03/28/17 - Family History Known Family History: Positive: Diabetes Negative: Cardiac Disease, Hypertension - Social History Alcohol Use: Rare Substance Use Type: None Smoking Status (MU): Never Smoked Tobacco Have You Smoked in the Last Year: No - Immunization History Vaccination Up to Date: Yes Review of Systems All Other Systems Reviewed And Are Negative: Yes Constitutional: Positive: Negative Skin: Positive: Negative Eyes: Positive: Negative ENT: Positive: Negative Respiratory: Positive: Negative Cardiovascular: Positive: Negative Gastrointestinal: Positive: Abdominal Pain - intermittent, Nausea Genitourinary: Positive: Negative Motor: Positive: Negative Neurovascular: Positive: Negative Musculoskeletal: Positive: Negative Neurological: Positive: Negative Psychological: Positive: Negative Physical Exam Triage Information Reviewed: Yes Appearance: Well-Appearing, No Pain Distress, Well-Nourished Vital Signs: Initial Vital Signs Temp 98.0 F 04/23/19 15:58 Pulse 60 04/23/19 15:58 Resp 18 04/23/19 15:58 BP 145/76 04/23/19 15:58 Pulse Ox 99 04/23/19 15:58 Vital Signs Reviewed: Yes Eyes: Positive: Conjunctiva Clear ENT: Positive: Hearing grossly normal. Negative: Nasal congestion, Nasal drainage, Trismus, Muffled voice, Hoarse voice Dental Exam: Normal Neck: Positive: Supple, Nontender, No Lymphadenopathy Respiratory: Positive: Lungs clear, Normal breath sounds, No respiratory distress Cardiovascular: Positive: RRR Abdomen Description: Positive: Nontender, No Organomegaly, Soft. Negative: CVA Tenderness (R), CVA Tenderness (L) Bowel Sounds: Positive: Present Musculoskeletal: Positive: ROM Intact, No Edema Neurological: Positive: Alert Psychological Exam: Normal Skin Exam: Normal Abd Pain Female Course/Dx - Course Course Of Treatment: UA neg uHCG- - Differential Dx/Diagnosis Provider Diagnosis: Nausea alone Discharge ED - Sign-Out/Discharge Documenting (check all that apply): Patient Departure All imaging exams completed and their final reports reviewed: No Studies - Discharge Plan Condition: Stable Disposition: HOME Patient Education Materials: Abdominal Pain (ED) Referrals: Karrie Yu MD [Primary Care Provider] - 3 Days (if not better ) Additional Instructions: your urine showed no evidence of infection recheck for localized abd pain/fever/vomiting or if not better in 2-3 days - Billing Disposition and Condition Condition: STABLE Disposition: Home
== END 2019-04-23 17:15 | disposition home or self-care (01) ==
LOC: UCCORT 15:23
DX: R11.0 Nausea (principal); Z88.0 Allergy status to penicillin; Z88.2 Allergy status to sulfonamides
CPT/HCPCS: 81003; 84702; 99211; G0463

== ENCOUNTER 2019-05-24 14:58 | Emergency (ER) | payer BC ==
[2019-05-24 16:12] VITALS: BP 151/74
[2019-05-24] MEDS ORDERED: Tetan/Diph/Pertus SYR(Tdap)* 0.5 ML SYR(BOOSTRIX) use SYR contains LATEX IM ONE (16:28)
--- NOTE | 2019-05-24 16:52 | UC ---
Bite Injury/Animal HPI - HPI Summary HPI Summary: Pt presents with c/o cat bite to right hand that occurred 2 days ago. Pt states that area around bite has become increasingly red, tender and has purulent discharge. Pt is unsure last tetanus. - History of Current Complaint Chief Complaint: UCBiteInjury Stated Complaint: CAT BITE Time Seen by Provider: 05/24/19 16:12 Hx Obtained From: Patient Hx Last Menstrual Period: 05/24/19 ?: No Severity Currently: Moderate Severity Initially: Mild Pain Intensity: 5 Onset/Duration: Sudden Onset, Lasting Days, Worse Since - onset Type of Bite: Pet Has Animal Been Immunized?: Yes Character: Puncture Alleviating Factor(s): Rest Associated Signs And Symptoms: Positive: Erythema, Drainage, Swelling Hx of Bite: Provoked by: - pt was giving pet medication through injection Animal Available for Observation: Yes Animal Control Notified: No - Risk Factors Infection/Sepsis Risk Factors: Full-Thickness Puncture - Allergies/Home Medications Allergies/Adverse Reactions: Allergies Allergy/AdvReac Type Severity Reaction Status Date / Time amoxicillin [From Augmentin] AdvReac yeast Verified 05/24/19 16:08 infection clavulanic acid AdvReac yeast Verified 05/24/19 16:08 [From Augmentin] infection sulfamethoxazole AdvReac GI cramps Verified 05/24/19 16:08 [From Bactrim] trimethoprim [From Bactrim] AdvReac GI cramps Verified 05/24/19 16:08 Home Medications: Home Medications Escitalopram * [Lexapro *] 10 mg PO DAILY 03/16/19 [History Confirmed 05/24/19] clindamycin HCL [Clindamycin HCl] 300 mg PO Q8H #30 capsule 05/24/19 [Rx] PMH/Surg Hx/FS Hx/Imm Hx Previously Healthy: Yes Other History Of: Negative For: HIV, Hepatitis B, Hepatitis C, Anticoagulant Therapy - Surgical History Surgical History: Yes Surgery Procedure, Year, and Place: 2004, 2007, 2009 C SECTIONS [place]. 2009 TUBAL LIGATION [place]. 2010 & 2011 LITHOTRIPSY [facility] [place]. 02/2013 [facility] [place]. gallbladder 03/28/17 - Family History Known Family History: Positive: Diabetes Negative: Cardiac Disease, Hypertension - Social History Occupation: Employed Full-time Lives: With Family Alcohol Use: Rare Substance Use Type: None Smoking Status (MU): Never Smoked Tobacco Have You Smoked in the Last Year: No - Immunization History Vaccination Up to Date: Yes Review of Systems All Other Systems Reviewed And Are Negative: Yes Constitutional: Positive: Negative Skin: Positive: Other - puncture wound, mild erythema, purulent drainage from wound Eyes: Positive: Negative ENT: Positive: Negative Respiratory: Positive: Negative Cardiovascular: Positive: Negative Gastrointestinal: Positive: Negative Genitourinary: Positive: Negative Motor: Positive: Negative Neurovascular: Positive: Negative Musculoskeletal: Positive: Edema - mild swelling right lateral palm of hand Neurological/Mental Status: Positive: Negative Psychological: Positive: Negative Is Patient Immunocompromised?: No Physical Exam Triage Information Reviewed: Yes Appearance: Well-Appearing Vital Signs: Initial Vital Signs Temp 97.6 F 05/24/19 16:08 Pulse 61 05/24/19 16:08 Resp 20 05/24/19 16:08 BP 151/74 05/24/19 16:08 Pulse Ox 100 05/24/19 16:08 Vital Signs Reviewed: Yes Eye Exam: Normal ENT Exam: Normal ENT: Positive: Hearing grossly normal Dental Exam: Normal Neck exam: Normal Respiratory: Positive: No respiratory distress Musculoskeletal: Positive: Edema @ - mild edema right palm of hand Neurological Exam: Normal Psychological Exam: Normal Skin Exam: Other - puncture wound right lateral palm, Diagnostics - Radiology No standard instances Radiology Interpretation Completed By: Radiologist - negative for FB or fx Bite Injury Course/Dx - Differential Dx/Diagnosis Differential Diagnosis/HQI/PQRI: Puncture Provider Diagnosis: Cat bite of hand Discharge ED - Sign-Out/Discharge Documenting (check all that apply): Patient Departure All imaging exams completed and their final reports reviewed: Yes - Discharge Plan Condition: Stable Disposition: HOME Prescriptions: clindamycin HCL [Clindamycin HCl] 300 mg PO Q8H #30 capsule Patient Education Materials: Animal Bite (ED) Referrals: Karrie Yu MD [Primary Care Provider] - If Needed - Billing Disposition and Condition Condition: STABLE Disposition: Home - Attestation Statements Provider Attestation: This patient was not seen by me. I was available for consult. Chart reviewed. [email or web address]
== END 2019-05-24 17:01 | disposition home or self-care (01) ==
LOC: UCCORT 14:58
DX: S61.451A Open bite of right hand, initial encounter (principal); Z88.0 Allergy status to penicillin; Z88.2 Allergy status to sulfonamides; W55.01XA Bitten by cat, initial encounter; Y92.9 Unspecified place or not applicable
CPT/HCPCS: 90715; 96372; 99212; G0463